=== PATIENT | female | born 1985 | race Caucasian/White ===

== ENCOUNTER 2017-01-05 19:45 | Emergency (ER) | payer BC, MEDICAID ==
[2017-01-05 20:21] VITALS: BP 160/98
[2017-01-05] MEDS ORDERED: Sodium Chloride 0.9% 1,000 ML IV ONE (21:33)
[2017-01-05] MEDS ORDERED: Ondansetron 4 MG/2 ML SDV IVPUSH ONE (21:33)
[2017-01-05] MEDS ORDERED: HYDROmorphone 1 MG/ML Syringe IM ONE (21:33)
--- NOTE | 2017-01-05 22:06 | EDM.PDOC ---
ED HPI GI/ABDOMINAL - General Chief Complaint: Genitourinary Problem Stated Complaint: KIDNEY STONE Time Seen by Provider: 01/05/17 20:19 Source: Reports: Patient History Limitations: Reports: No limitations - History of Present Illness INITIAL COMMENTS - FREE TEXT/NARRATIVE: right flank pain for the past two days, started last night, having constant ache with sharp stabbing pain in rt low pelvis and rt flank. She has taken Tramadol for this and two days ago took percocet for acute pain. She reports pain is similar to previous kidney stones. she is nauseated from the pain. surgeries; appendix, hysterectomy with ovaries intact. 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) (tramadol and percocet) - Related Data Allergies/ADRs: Allergies Allergy/AdvReac Type Severity Reaction Status Date / Time cephalexin [Cephalexin] Allergy Hives Verified 11/14/16 19:04 erythromycin base Allergy migraine Verified 11/14/16 19:04 [Erythromycin Base] Penicillins Allergy Rash Verified 11/14/16 19:04 Sulfa (Sulfonamide Allergy Rash Verified 11/14/16 19:04 Antibiotics) Home Meds: Home Meds Acetaminophen [Tylenol Extra Strength] 1,000 mg PO QID PRN 12/29/15 [History] Ibuprofen 800 mg PO QID PRN 12/29/15 [History] Cetirizine [ZyrTEC] 10 mg PO QAM 02/12/16 [History] Metoclopramide HCl [Reglan] 10 mg PO TID PRN 02/17/16 [History] diphenhydrAMINE HCl [Benadryl] 50 mg PO BEDTIME 04/26/16 [History] Baclofen [Baclofen] 10 mg PO BEDTIME 09/09/16 [History] traMADol [Take Home: traMADol 50 MG, 4 Tab Pack] 50 mg PO Q6HR PRN 09/09/16 [ History] Nortriptyline [Nortriptyline] 100 mg PO DAILY 09/27/16 [History] Past Medical History HEENT History: Reports: Allergic rhinitis Other HEENT History: TMJ Genitourinary History: Reports: Renal calculus, UTI, recurrent 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: Dysfunctional uterine bleeding, Endometriosis, Other OB/BYN History: ovarian cysts-multiple Musculoskeletal History: Reports: Fibromyalgia Neurological History: Reports: Migraines Psychiatric History: Reports: Depression Hematologic History: Reports: Anemia - Infectious Disease History Infectious Disease History: Reports: Chicken pox - Past Surgical History GI Surgical History: Reports: Appendectomy, Cholecystectomy Female Surgical History: Reports: section, Hysterectomy, Lithotripsy /ESWL, Other (see below) Other Female Surgeries/Procedures: kidney stones removed with scope, nephrostomy tube with 2014, fallopian tubes removed. Social & Family History - Family History HEENT: Reports: Hearing impairment Cardiac: Reports: CAD Musculoskeletal: Reports: Arthritis, Fibromyalgia Endocrine/Metabolic: Reports: Diabetes, type I Oncologic: Reports: Uterine Other Oncologic Family History: grandma. - Tobacco Use Smoking Status *Q: Never Smoker Years of Tobacco use: 8 Used Tobacco, but Quit: No Second Hand Smoke Exposure: No - Caffeine Use Caffeine Use: Reports: Coffee - Alcohol Use Days Per Week of Alcohol Use: 0 - Recreational Drug Use Recreational Drug Use: No Drug Use in Last 12 Months: No Recreational Drug Type: Reports: Marijuana/Hashish Recreational Drug Use Frequency: Not Used In Over 1 Year - Living Situation & Occupation Living situation: Reports: , with family (lives with , 4 children in [place], [place].) ED ROS GENERAL - Review of Systems Review Of Systems: See Below Constitutional: Reports: decreased appetite (nausea from pain) HEENT: Reports: No symptoms, Vertigo Cardiovascular: Reports: No symptoms Endocrine: Reports: no symptoms GI/Abdominal: Reports: Abdominal pain : Reports: flank pain (right) Musculoskeletal: Reports: no symptoms Skin: Reports: no symptoms Neurological: Reports: No Symptoms Psychiatric: Reports: No symptoms Hematologic/Lymphatic: Reports: no symptoms Immunologic: Reports: no symptoms ED EXAM, GI/ABD - Physical Exam Exam: See Below Exam Limited By: No limitations General Appearance: alert, WD/WN, no apparent distress Respiratory/Chest: no respiratory distress Cardiovascular: regular rate, rhythm GI/Abdominal: normal bowel sounds, soft, no distention, tenderness (right lower abdomen pelvis) (Female) Exam: Deferred Rectal (Female) Exam: Deferred Psychiatric: normal affect, normal mood Skin Exam: Warm, Dry, Intact, Normal color, No rash Course - Vital Signs Last Recorded V/S: Last Vital Signs Temp 37.2 C 01/05/17 20:19 Pulse 106 H 01/05/17 20:19 Resp 20 01/05/17 20:19 BP 160/98 H 01/05/17 20:19 Pulse Ox 98 01/05/17 20:19 - Orders/Labs/Meds Orders: Active Orders 24 hr Category Date Time Status Kidney Stone Protocol [CT] Stat Exams 01/05/17 21:31 Taken Labs: Laboratory Tests 01/05/17 01/05/17 Range/Units 20:38 20:59 Urine Color [place] Urine Appearance Clear Urine pH 7.0 (4.5-8.0) Ur Specific [place] 1.010 (1.008-1.030) Urine Protein Negative (NEGATIVE) mg/dL Urine Glucose (UA) Normal (NEGATIVE) mg/dL Urine Ketones Negative (NEGATIVE) mg/dL Urine Occult Blood Negative (NEGATIVE) Urine Nitrite Negative (NEGATIVE) Urine Bilirubin Small (NEGATIVE) Urine Urobilinogen 1 (NORMAL) mg/dL Ur Leukocyte Esterase Negative (NEGATIVE) Urine RBC 0-5 (0-5) Urine WBC 0-5 (0-5) Ur Epithelial Cells Moderate Amorphous Sediment Few Urine Bacteria Rare Urine Mucus Few Urine Opiates Screen Positive H (NEGATIVE) Ur Oxycodone Screen Positive H (NEGATIVE) Urine Methadone Screen Negative (NEGATIVE) Ur Propoxyphene Screen Negative (NEGATIVE) Ur Barbiturates Screen Negative (NEGATIVE) Ur Tricyclics Screen Positive H (NEGATIVE) Ur Phencyclidine Scrn Negative (NEGATIVE) Ur Amphetamine Screen Negative (NEGATIVE) U Methamphetamines Scrn Negative (NEGATIVE) Urine MDMA Screen Negative (NEGATIVE) U Benzodiazepines Scrn Positive H (NEGATIVE) U Cocaine Metab Screen Negative (NEGATIVE) U Marijuana (THC) Screen Negative (NEGATIVE) Meds: Medications Discontinued Medications Generic Name Dose Route Start Last Admin Trade Name Freq PRN Reason Stop Dose Admin Hydromorphone HCl 1 mg 01/05/17 21:33 01/05/17 22:06 Dilaudid IM 01/05/17 21:34 1 mg ONETIME ONE Administration Hydromorphone HCl 1 mg 01/05/17 23:54 01/06/17 00:00 Dilaudid IVPUSH 01/05/17 23:55 1 mg ONETIME ONE Administration Sodium Chloride 1,000 mls @ 999 mls/hr 01/05/17 21:33 01/05/17 22:06 Normal Saline IV 01/05/17 22:33 999 mls/hr .BOLUS ONE Administration Ondansetron HCl 4 mg 01/05/17 21:33 01/05/17 22:06 Zofran IVPUSH 01/05/17 21:34 4 mg ONETIME ONE Administration - Re-Assessments/Exams Free Text/Narrative Re-Assessment/Exam: 01/05/17 22:10 given one liter of normal saline, zofran 4m g iv, dilaudid 1 mg im urine and uds completed CT kidney stone protocol pending. 01/05/17 22:13 01/06/17 00:39 CT kidney stone protocol; intra renal stones noted, no other abnormalities are noted. reviewed with patient and given copy of report. advise to follow up with PCP on Saturday for recheck. Departure - Departure Time of Disposition: 00:44 Disposition: Home, Self-Care 01 Condition: good Clinical Impression: Chronic right flank pain Forms: ED Department Discharge Care Plan Goals: right flank pain -may use Percocet one every 4 to 6 hr as needed for acute pain -continue all other medication -push fluids, rest, take medication as prescribed -follow up with Primary Care for recheck on Saturday return to Urgent Care or ER if has increased pain, fever, nausea, vomiting or not improved - Problem List & Annotations (1) Chronic right flank pain SNOMED Code(s): 718648195 Code(s): R10.9 - UNSPECIFIED ABDOMINAL PAIN; G89.29 - OTHER CHRONIC PAIN Status: Chronic Priority: Medium Current Visit: Yes - Problem List Review Problem List Initiated/Reviewed/Updated: Yes - My Orders Last 24 Hours: My Active Orders 01/05/17 21:31 Kidney Stone Protocol [CT] Stat - Assessment/Plan Last 24 Hours: My Active Orders 01/05/17 21:31 Kidney Stone Protocol [CT] Stat Plan: right flank pain -may use Percocet one every 4 to 6 hr as needed for acute pain #10 -continue all other medications -push fluids, rest, take medication as prescribed -follow up with Primary Care for recheck on Saturday return to Urgent Care or ER if has increased pain, fever, nausea, vomiting or not improved
[2017-01-05] MEDS ORDERED: HYDROmorphone 1 MG/ML Syringe IVPUSH ONE (23:54)
== END 2017-01-06 00:59 | disposition home or self-care (01) ==
LOC: JP.ED 19:45
DX: R10.31 Right lower quadrant pain (principal); G89.29 Other chronic pain; F32.9 Major depressive disorder, single episode, unspecified; Z90.49 Acquired absence of other specified parts of digestive tract; Z90.710 Acquired absence of both cervix and uterus; Z98.890 Other specified postprocedural states; Z79.899 Other long term (current) drug therapy; Z88.0 Allergy status to penicillin; Z88.1 Allergy status to other antibiotic agents; Z88.2 Allergy status to sulfonamides
CPT/HCPCS: 74176; 80305; 81001; 96361; 96372; 96374; 96375; 99284; J1170; J2405; J7040

== ENCOUNTER 2017-01-10 13:07 | Emergency (ER) | payer BC, MEDICAID ==
[2017-01-10 13:20] VITALS: BP 161/97
--- NOTE | 2017-01-10 14:26 | CR ---
Abdomen 1V Flat INDICATION: assess constipation FINDINGS: Comparison 11/14/2016. Decreased stool since prior exam. Mild/moderate stool throughout nor mal caliber colon and rectum. No evidence for small bowel obstruction. Surgical clips right upper qu adrant.
--- NOTE | 2017-01-10 15:01 | EDM.PDOC ---
ED HPI GI/ABDOMINAL - General Chief Complaint: Genitourinary Problem Stated Complaint: FLANK/BLADDER PAIN Time Seen by Provider: 01/10/17 13:43 Source: Reports: Patient History Limitations: Reports: No limitations - History of Present Illness INITIAL COMMENTS - FREE TEXT/NARRATIVE: This patient comes in complaining of right flank pain. This is been a frequent problem for her. She's had kidney stones in the past. She was seen recently in the ER and a CT scan was done which showed some small stones in the left kidney but there is nothing in the ureter. It was thought that maybe she had passed a stone at that time. The CT was called otherwise normal. That CT was reviewed and shows a large amount of stool in the colon particularly in the cecum and descending colon. The patient's pain is also in the right side of the abdomen. She denies any fever. There has been just a little bit of vomiting. She denies any constipation. She was seen by me in October for abdominal pain and a plain film at that visit showed a normal some stool within the colon. The patient says that she took some laxatives and took care of that. - Related Data Allergies/ADRs: Allergies Allergy/AdvReac Type Severity Reaction Status Date / Time cephalexin [Cephalexin] Allergy Hives Verified 01/10/17 13:26 erythromycin base Allergy migraine Verified 01/10/17 13:26 [Erythromycin Base] Penicillins Allergy Rash Verified 01/10/17 13:26 Sulfa (Sulfonamide Allergy Rash Verified 01/10/17 13:26 Antibiotics) Home Meds: Home Meds Acetaminophen [Tylenol Extra Strength] 1,000 mg PO QID PRN 12/29/15 [History] Ibuprofen 800 mg PO QID PRN 12/29/15 [History] Cetirizine [ZyrTEC] 10 mg PO QAM 02/12/16 [History] Metoclopramide HCl [Reglan] 10 mg PO TID PRN 02/17/16 [History] diphenhydrAMINE HCl [Benadryl] 50 mg PO BEDTIME 04/26/16 [History] Baclofen [Baclofen] 10 mg PO BEDTIME 09/09/16 [History] traMADol [Take Home: traMADol 50 MG, 4 Tab Pack] 50 mg PO Q6HR PRN 09/09/16 [ History] Nortriptyline [Nortriptyline] 100 mg PO DAILY 09/27/16 [History] Past Medical History HEENT History: Reports: Allergic rhinitis Other HEENT History: TMJ Genitourinary History: Reports: Renal calculus, UTI, recurrent 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: Dysfunctional uterine bleeding, Endometriosis, Other OB/BYN History: ovarian cysts-multiple Musculoskeletal History: Reports: Fibromyalgia Neurological History: Reports: Migraines Psychiatric History: Reports: Depression Hematologic History: Reports: Anemia - Infectious Disease History Infectious Disease History: Reports: Chicken pox - Past Surgical History GI Surgical History: Reports: Appendectomy, Cholecystectomy Female Surgical History: Reports: section, Hysterectomy, Lithotripsy /ESWL, Other (see below) Other Female Surgeries/Procedures: kidney stones removed with scope, nephrostomy tube with 2014, fallopian tubes removed. Social & Family History - Family History HEENT: Reports: Hearing impairment Cardiac: Reports: CAD Musculoskeletal: Reports: Arthritis, Fibromyalgia Endocrine/Metabolic: Reports: Diabetes, type I Oncologic: Reports: Uterine Other Oncologic Family History: grandma. - Tobacco Use Smoking Status *Q: Never Smoker Years of Tobacco use: 8 Used Tobacco, but Quit: No Second Hand Smoke Exposure: No - Caffeine Use Caffeine Use: Reports: Coffee - Alcohol Use Days Per Week of Alcohol Use: 0 - Recreational Drug Use Recreational Drug Use: No Drug Use in Last 12 Months: No Recreational Drug Type: Reports: Marijuana/Hashish Recreational Drug Use Frequency: Not Used In Over 1 Year - Living Situation & Occupation Living situation: Reports: , with family (lives with , 4 children in [place], [place].) ED ROS GENERAL - Review of Systems Review Of Systems: ROS reveals no pertinent complaints other than HPI. ED EXAM, GI/ABD - Physical Exam Exam: See Below Exam Limited By: No limitations General Appearance: alert, WD/WN, mild distress Eyes: bilateral: normal appearance Respiratory/Chest: lungs clear (Either) Cardiovascular: regular rate, rhythm, no murmur GI/Abdominal: normal bowel sounds, soft, non tender Back Exam: CVA tenderness (R) Extremities: normal inspection Neurological: alert, oriented (Soon as this this is a) Skin Exam: Warm, Dry Course - Vital Signs Last Recorded V/S: Last Vital Signs Temp 36.4 C 01/10/17 13:32 Pulse 89 01/10/17 13:32 Resp 16 01/10/17 13:32 BP 161/97 H 01/10/17 13:32 Pulse Ox 99 01/10/17 13:32 - Orders/Labs/Meds Labs: Laboratory Tests 01/10/17 Range/Units 13:23 Urine Color Yellow Urine Appearance Clear Urine pH 6.0 (4.5-8.0) Ur Specific [place] 1.015 (1.008-1.030) Urine Protein Negative (NEGATIVE) mg/dL Urine Glucose (UA) Normal (NEGATIVE) mg/dL Urine Ketones Negative (NEGATIVE) mg/dL Urine Occult Blood Negative (NEGATIVE) Urine Nitrite Negative (NEGATIVE) Urine Bilirubin Negative (NEGATIVE) Urine Urobilinogen Normal (NORMAL) mg/dL Ur Leukocyte Esterase Negative (NEGATIVE) Urine RBC Not seen (0-5) Urine WBC Not seen (0-5) Ur Epithelial Cells Rare Amorphous Sediment Rare Urine Bacteria Rare Urine Mucus Not seen Urine Other See note - Re-Assessments/Exams Free Text/Narrative Re-Assessment/Exam: 01/11/17 17:24 Labs were reviewed. A repeat flat abdominal film does show a small to moderate amount of stool within the colon. Much less than on previous exams. I note that this lady has had a total of [address] scans at this facility and she's also had another 3 abdominal [address]s at [facility]. She's aware of the radiation risk. We discussed the use of laxatives and fiber. The patient's urine is normal today and was actually normal on her last ER visit. Patient said that she thought that there was blood in it. She also thought that the urine today was very dark. Specific gravity of the urine today was 1.015 I think it would be worthwhile for her to get her bowels completely cleared out and see if that helps the problem prior to doing any more diagnostic workup for this chronic recurring problem Departure - Departure Time of Disposition: 14:54 Disposition: Home, Self-Care 01 Condition: fair Clinical Impression: Right flank pain, chronic Instructions: Constipation, Adult Referrals: PCP,None [Primary Care Provider] - Forms: ED Department Discharge Additional Instructions: try drinking one full bottle of magnesium citrate along with several glasses of water. This should clear out your bowels within about 12-24 hours. Afterwards eat a high fiber diet. A suggestion would be a large bowl of bran cereal twice daily. You should look for a cereal with 8-10 g of insoluble fiber per serving. Try using either lactose free milk or use Lactaid tablets with regular milk. If your bowels or cleared out but this does not seem to help the pain been at least you'll be able to rule out constipation as a cause of your pain. If the pain continues then an ultrasound of the right kidney might be a good test. Try to avoid having any more CT scans since the radiation dose is high.
== END 2017-01-10 15:07 | disposition home or self-care (01) ==
LOC: JP.ED 13:07
DX: R10.9 Unspecified abdominal pain (principal); G89.29 Other chronic pain; F32.9 Major depressive disorder, single episode, unspecified; Z90.49 Acquired absence of other specified parts of digestive tract; Z90.710 Acquired absence of both cervix and uterus; Z98.890 Other specified postprocedural states; Z87.442 Personal history of urinary calculi; Z79.899 Other long term (current) drug therapy; Z88.0 Allergy status to penicillin; Z88.1 Allergy status to other antibiotic agents; Z88.2 Allergy status to sulfonamides
CPT/HCPCS: 74000; 74000-26; 81001; 99284

== ENCOUNTER 2017-02-12 17:28 | Emergency (ER) | payer BC, MEDICAID ==
[2017-02-12 18:44] VITALS: BP 150/95
[2017-02-12] MEDS ORDERED: Ketorolac 60 MG/2 ML SDV IM ONE (19:50)
[2017-02-12] MEDS ORDERED: Ondansetron 4 MG Tab.DIS PO ONE (19:50)
--- NOTE | 2017-02-12 20:07 | EDM.PDOC ---
ED HPI GENERAL MEDICAL PROBLEM - General Chief Complaint: General Stated Complaint: MIGRAINE/KIDNEY AND BLADDER PAIN Time Seen by Provider: 02/12/17 19:25 Source of Information: Reports: Patient History Limitations: Reports: No Limitations - History of Present Illness INITIAL COMMENTS - FREE TEXT/NARRATIVE: 31-year-old female with chronic pain syndromes in with a migraine for the last 3 days and right-sided flank pain which is chronic. She denies taking any pain medications at this time but has received 120 Percocet in the last 2 weeks. No vomiting but does have nausea and some mild photophobia. Onset: Unknown/Unsure Severity: Moderate Associated Symptoms: Reports: Headaches, Malaise. Denies: Cough, Fever/Chills Headache Pain Score (Numeric/FACES): 8 Flank Pain Score (Numeric/FACES): 6 - Related Data Allergies Allergy/AdvReac Type Severity Reaction Status Date / Time cephalexin [Cephalexin] Allergy Hives Verified 01/10/17 13:26 erythromycin base Allergy migraine Verified 01/10/17 13:26 [Erythromycin Base] Penicillins Allergy Rash Verified 01/10/17 13:26 Sulfa (Sulfonamide Allergy Rash Verified 01/10/17 13:26 Antibiotics) Home Meds: Home Meds Acetaminophen [Tylenol Extra Strength] 1,000 mg PO QID PRN 12/29/15 [History] Ibuprofen 800 mg PO QID PRN 12/29/15 [History] Cetirizine [ZyrTEC] 10 mg PO QAM 02/12/16 [History] Metoclopramide HCl [Reglan] 10 mg PO TID PRN 02/17/16 [History] diphenhydrAMINE HCl [Benadryl] 50 mg PO BEDTIME 04/26/16 [History] Baclofen [Baclofen] 10 mg PO BEDTIME 09/09/16 [History] traMADol [Take Home: traMADol 50 MG, 4 Tab Pack] 50 mg PO Q6HR PRN 09/09/16 [ History] Nortriptyline [Nortriptyline] 100 mg PO DAILY 09/27/16 [History] Atenolol 25 mg PO DAILY 02/12/17 [History] Past Medical History HEENT History: Reports: Allergic Rhinitis Other HEENT History: TMJ Gastrointestinal History: Reports: None Genitourinary History: Reports: Renal Calculus, UTI, 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, Endometriosis, Other OB/BYN History: ovarian cysts-multiple Musculoskeletal History: Reports: Fibromyalgia Neurological History: Reports: Migraines Psychiatric History: Reports: Depression Hematologic History: Reports: Anemia - Infectious Disease History Infectious Disease History: Reports: Chicken Pox - Past Surgical History Head Surgeries/Procedures: Reports: None HEENT Surgical History: Reports: None GI Surgical History: Reports: Appendectomy, Cholecystectomy Female Surgical History: Reports: Section, Hysterectomy, Lithotripsy /ESWL, Other (See Below) Neurological Surgical History: Reports: None Musculoskeletal Surgical History: Reports: None Dermatological Surgical History: Reports: None Social & Family History - Family History HEENT: Reports: Hearing Impairment Cardiac: Reports: CAD Musculoskeletal: Reports: Arthritis, Fibromyalgia Endocrine/Metabolic: Reports: Diabetes, Type I Oncologic: Reports: Uterine Other Oncologic Family History: grandma. - Tobacco Use Smoking Status *Q: Former Smoker Years of Tobacco use: 8 Packs/Tins Daily: 0.5 Used Tobacco, but Quit: Yes Month Tobacco Last Used: July Second Hand Smoke Exposure: No - Caffeine Use Caffeine Use: Reports: Coffee, Energy Drinks, Soda, Tea - Alcohol Use Days Per Week of Alcohol Use: 0 - Recreational Drug Use Recreational Drug Use: No Drug Use in Last 12 Months: No Recreational Drug Type: Reports: Marijuana/Hashish Recreational Drug Use Frequency: Not Used In Over 1 Year - Living Situation & Occupation Living situation: Reports: , with Family ED ROS GENERAL - Review of Systems Review Of Systems: See Below Constitutional: Reports: Malaise. Denies: Fever, Chills HEENT: Reports: Other (Some photophobia) Respiratory: Denies: Shortness of Breath : Reports: Flank Pain. Denies: Dysuria, Frequency Skin: Reports: No Symptoms Neurological: Reports: Headache ED EXAM, GENERAL - Physical Exam Exam: See Below Exam Limited By: No Limitations General Appearance: Alert, No Apparent Distress (Not distressed but does act uncomfortable) Respiratory/Chest: No Respiratory Distress, Lungs Clear Cardiovascular: Regular Rate, Rhythm GI/Abdominal: Soft, Non-Tender Neurological: Alert, Oriented Psychiatric: Flat Affect Skin Exam: Warm, Dry Course - Vital Signs Last Recorded V/S: Last Vital Signs Temp 98.2 F 02/12/17 19:28 Pulse 96 02/12/17 19:28 Resp 16 02/12/17 19:28 BP 150/95 H 02/12/17 19:28 Pulse Ox 97 02/12/17 19:28 - Orders/Labs/Meds Orders: Active Orders 24 hr Category Date Time Status CULTURE URINE [RM] Stat Lab 02/12/17 20:41 Received Labs: Laboratory Tests 02/12/17 Range/Units 20:07 Urine Color Yellow Urine Appearance Cloudy Urine pH 7.0 (4.5-8.0) Ur Specific [place] 1.010 (1.008-1.030) Urine Protein Negative (NEGATIVE) mg/dL Urine Glucose (UA) Normal (NEGATIVE) mg/dL Urine Ketones Negative (NEGATIVE) mg/dL Urine Occult Blood Negative (NEGATIVE) Urine Nitrite Negative (NEGATIVE) Urine Bilirubin Negative (NEGATIVE) Urine Urobilinogen Normal (NORMAL) mg/dL Ur Leukocyte Esterase Negative (NEGATIVE) Urine RBC 0-5 (0-5) Urine WBC 5-10 H (0-5) Ur Epithelial Cells Moderate Amorphous Sediment Few Urine Bacteria Moderate Urine Mucus Few Meds: Medications Discontinued Medications Generic Name Dose Route Start Last Admin Trade Name Freq PRN Reason Stop Dose Admin Ketorolac Tromethamine 60 mg 02/12/17 19:50 02/12/17 20:12 Toradol IM 02/12/17 19:51 60 mg ONETIME ONE Administration Methylprednisolone Sodium Succinate 125 mg 02/12/17 20:44 02/12/17 20:52 Solu-Medrol IM 02/12/17 20:45 125 mg ONETIME ONE Administration Ondansetron HCl 4 mg 02/12/17 19:50 02/12/17 20:13 Zofran Odt PO 02/12/17 19:51 4 mg ONETIME ONE Administration - Re-Assessments/Exams Free Text/Narrative Re-Assessment/Exam: 02/12/17 20:06 Patient was given 60 mg of Toradol IM and 4 mg of sublingual Zofran. A mini cath UA was obtained. 02/12/17 20:46 Cath UA was not obtained because the patient supplied a sample was taken the lab as a clean catch. There a few white cells and bacteria so this will be cultured but it likely will be mixed natty as in the past. She should be placed on Cipro 250 twice a day for the next 3 days. She said the Toradol and Zofran "didn't do anything for her". She was given 125 mg of Solu-Medrol IM and prepared for discharge. 02/12/17 21:08 To discharge she asked for a prescription of something that could "get her through so she could get to work". I then told her to take the oxycodone as prescribed and she said they weren't working, despite not admitting she had any earlier. I told her she is already on the strongest narcotic, we gave her the strongest anti-inflammatory and also gave her shot of steroid, she'll just have to continue with her current medications. Departure - Departure Time of Disposition: 21:07 Disposition: Home, Self-Care 01 Condition: good Clinical Impression: Bacteria in urine, Right flank pain, chronic Migraine Qualifiers: Migraine type: without aura Status migrainosus presence: without status migrainosus Intractability: not intractable Qualified Code(s): G43.009 - Migraine without aura, not intractable, without status migrainosus - Discharge Information Instructions: Recurrent Migraine Headache, [id number] Referrals: PCP,None [Primary Care Provider] - Forms: ED Department Discharge Care Plan Goals: Take Cipro twice daily for the next 3 days and continue your regular medications. Recheck with your primary provider in 48-72 hours if not improving satisfactorily, or return to ER if worsening. - My Orders Last 24 Hours: My Active Orders 02/12/17 20:41 CULTURE URINE [RM] Stat - Assessment/Plan Last 24 Hours: My Active Orders 02/12/17 20:41 CULTURE URINE [RM] Stat
[2017-02-12] MEDS ORDERED: methylPREDNISolone Sodium Succinate 125 MG/2 ML SDV IM ONE (20:44)
== END 2017-02-12 21:08 | disposition home or self-care (01) ==
LOC: JP.ED 17:28
DX: G43.009 Migraine without aura, not intractable, without status migrainosus (principal); R82.71 Bacteriuria; R10.9 Unspecified abdominal pain; F32.9 Major depressive disorder, single episode, unspecified; Z88.1 Allergy status to other antibiotic agents; Z88.2 Allergy status to sulfonamides; Z88.0 Allergy status to penicillin; Z79.899 Other long term (current) drug therapy; Z90.49 Acquired absence of other specified parts of digestive tract; Z90.710 Acquired absence of both cervix and uterus; Z87.891 Personal history of nicotine dependence; Z87.440 Personal history of urinary (tract) infections
CPT/HCPCS: 81001; 87086; 96372; 96374; 99283; 99284; A9270; J1885; J2930

== ENCOUNTER 2017-04-24 14:35 | Emergency (ER) | payer BC, MEDICAID ==
[2017-04-24] MEDS ORDERED: Sodium Chloride 0.9% 1,000 ML IV SCH (15:00)
[2017-04-24] MEDS ORDERED: HYDROmorphone 0.5 MG/0.5 ML Syringe IVPUSH ONE ×2 (16:12→18:24)
[2017-04-24] MEDS ORDERED: Ketorolac 30 MG/ML SDV IVPUSH ONE (17:19)
--- NOTE | 2017-04-24 17:20 | EDM.PDOC ---
[id number] Chief Complaint: Genitourinary Problem Stated Complaint: RLQ PAIN Time Seen by Provider: 04/24/17 14:50 - Related Data Allergies Allergy/AdvReac Type Severity Reaction Status Date / Time cephalexin [Cephalexin] Allergy Hives Verified 04/24/17 15:11 erythromycin base Allergy migraine Verified 04/24/17 15:11 [Erythromycin Base] Penicillins Allergy Rash Verified 04/24/17 15:11 Sulfa (Sulfonamide Allergy Rash Verified 04/24/17 15:11 Antibiotics) Home Meds: Home Meds Acetaminophen [Tylenol Extra Strength] 1,000 mg PO QID PRN 12/29/15 [History] Ibuprofen 800 mg PO QID PRN 12/29/15 [History] Cetirizine [ZyrTEC] 10 mg PO QAM 02/12/16 [History] Metoclopramide HCl [Reglan] 10 mg PO TID PRN 02/17/16 [History] diphenhydrAMINE HCl [Benadryl] 50 mg PO BEDTIME PRN 04/26/16 [History] Baclofen [Baclofen] 10 mg PO BEDTIME 09/09/16 [History] traMADol [Take Home: traMADol 50 MG, 4 Tab Pack] 50 mg PO Q6HR PRN 09/09/16 [ History] Nortriptyline [Nortriptyline] 100 mg PO DAILY 09/27/16 [History] Atenolol 1 mg PO TID 02/12/17 [History] ED EXAM, GI/ABD - Physical Exam Exam: See Below Course - Vital Signs Last Recorded V/S: Last Vital Signs Temp 36.5 C 04/24/17 18:57 Pulse 71 04/24/17 18:57 Resp 16 04/24/17 18:57 BP 131/71 04/24/17 18:57 Pulse Ox 97 04/24/17 18:57 - Orders/Labs/Meds Labs: Laboratory Tests 04/24/17 04/24/17 04/24/17 Range/Units 14:45 14:45 14:49 WBC 8.6 (4.5-11.0) K/uL RBC 4.18 (3.30-5.50) M/uL Hgb 12.5 (12.0-15.0) g/dL Hct 36.4 (36.0-48.0) % MCV 87 (80-98) fL MCH 30 (27-31) pg MCHC 34 (32-36) % Plt Count 282 (150-400) K/uL Neut % (Auto) 39 (36-66) % Lymph % (Auto) 44 (24-44) % [place] % (Auto) 8 H (2-6) % Eos % (Auto) 8 H (2-4) % Baso % (Auto) 2 H (0-1) % Sodium 139 L (140-148) mmol/L Potassium 3.9 (3.6-5.2) mmol/L Chloride 102 (100-108) mmol/L Carbon Dioxide 28 (21-32) mmol/L Anion Gap 12.9 (5.0-14.0) mmol/L BUN 11 (7-18) mg/dL Creatinine 0.9 D (0.6-1.0) mg/dL Est Cr Clr Drug Dosing 83.23 mL/min Estimated GFR (MDRD) > 60 (>60) Glucose 93 (74-106) mg/dL Calcium 8.5 (8.5-10.1) mg/dL Total Bilirubin 0.2 (0.2-1.0) mg/dL AST 12 L (15-37) U/L ALT 16 (12-78) U/L Alkaline Phosphatase 86 (46-116) U/L C-Reactive Protein (0.0-0.3) mg/dL Total Protein 7.7 (6.4-8.2) g/dL Albumin 4.2 (3.4-5.0) g/dL Globulin 3.5 (2.3-3.5) g/dL Albumin/Globulin Ratio 1.2 (1.2-2.2) Urine Color Yellow Urine Appearance Slightly cloudy Urine pH 6.0 (4.5-8.0) Ur Specific [place] 1.020 (1.008-1.030) Urine Protein Negative (NEGATIVE) mg/dL Urine Glucose (UA) Normal (NEGATIVE) mg/dL Urine Ketones Negative (NEGATIVE) mg/dL Urine Occult Blood Negative (NEGATIVE) Urine Nitrite Negative (NEGATIVE) Urine Bilirubin Negative (NEGATIVE) Urine Urobilinogen Normal (NORMAL) mg/dL Ur Leukocyte Esterase Negative (NEGATIVE) Urine RBC 0-5 (0-5) Urine WBC 0-5 (0-5) Ur Epithelial Cells Moderate Amorphous Sediment Not seen Urine Bacteria Many Urine Mucus Not seen Urine Other 04/24/17 Range/Units 16:40 WBC (4.5-11.0) K/uL RBC (3.30-5.50) M/uL Hgb (12.0-15.0) g/dL Hct (36.0-48.0) % MCV (80-98) fL MCH (27-31) pg MCHC (32-36) % Plt Count (150-400) K/uL Neut % (Auto) (36-66) % Lymph % (Auto) (24-44) % [place] % (Auto) (2-6) % Eos % (Auto) (2-4) % Baso % (Auto) (0-1) % Sodium (140-148) mmol/L Potassium (3.6-5.2) mmol/L Chloride (100-108) mmol/L Carbon Dioxide (21-32) mmol/L Anion Gap (5.0-14.0) mmol/L BUN (7-18) mg/dL Creatinine (0.6-1.0) mg/dL Est Cr Clr Drug Dosing mL/min Estimated GFR (MDRD) (>60) Glucose (74-106) mg/dL Calcium (8.5-10.1) mg/dL Total Bilirubin (0.2-1.0) mg/dL AST (15-37) U/L ALT (12-78) U/L Alkaline Phosphatase (46-116) U/L C-Reactive Protein 0.18 (0.0-0.3) mg/dL Total Protein (6.4-8.2) g/dL Albumin (3.4-5.0) g/dL Globulin (2.3-3.5) g/dL Albumin/Globulin Ratio (1.2-2.2) Urine Color Urine Appearance Urine pH (4.5-8.0) Ur Specific [place] (1.008-1.030) Urine Protein (NEGATIVE) mg/dL Urine Glucose (UA) (NEGATIVE) mg/dL Urine Ketones (NEGATIVE) mg/dL Urine Occult Blood (NEGATIVE) Urine Nitrite (NEGATIVE) Urine Bilirubin (NEGATIVE) Urine Urobilinogen (NORMAL) mg/dL Ur Leukocyte Esterase (NEGATIVE) Urine RBC (0-5) Urine WBC (0-5) Ur Epithelial Cells Amorphous Sediment Urine Bacteria Urine Mucus Urine Other Meds: Medications Discontinued Medications Generic Name Dose Route Start Last Admin Trade Name Hangq PRN Reason Stop Dose Admin Hydromorphone HCl 0.5 mg 04/24/17 16:12 04/24/17 16:54 Dilaudid IVPUSH 04/24/17 16:13 0.5 mg ONETIME ONE Administration Hydromorphone HCl 0.5 mg 04/24/17 18:24 04/24/17 18:31 Dilaudid IVPUSH 04/24/17 18:25 0.5 mg ONETIME ONE Administration Sodium Chloride 1,000 mls @ 999 mls/hr 04/24/17 15:00 04/24/17 15:00 Normal Saline IV 999 mls/hr ASDIRECTED CRISTINA Administration Sodium Chloride 80 mls @ 3 mls/sec 04/24/17 17:30 04/24/17 17:43 Normal Saline IV 3 mls/sec ASDIRECTED CRISTINA Administration Iopamidol 100 ml 04/24/17 17:30 04/24/17 17:43 Isovue-300 (61%) IV 100 ml . DIRECTED CRISTINA Administration Ketorolac Tromethamine 30 mg 04/24/17 17:19 04/24/17 17:28 Toradol IVPUSH 04/24/17 17:20 30 mg ONETIME ONE Administration Sodium Chloride 10 ml 04/24/17 17:29 04/24/17 17:43 Saline Flush FLUSH 10 ml ASDIRECTED PRN Administration Keep Vein Open - Radiology Interpretation Free Text/Narrative:: CT is negative. 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 <La Gipson - Last Filed: 04/26/17 18:18> ED HPI GENERAL MEDICAL PROBLEM - General Source of Information: Reports: Patient History Limitations: Reports: No Limitations - History of Present Illness INITIAL COMMENTS - FREE TEXT/NARRATIVE: pt has severe rt mid abdomanal pain. Pt states this started very suddenly. She feels this is like the pain she larose had with an ovarian cyst. 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: Dysfunctional Uterine Bleeding, Endometriosis, Other OB/BYN History: ovarian cysts-multiple Musculoskeletal History: Reports: Fibromyalgia Neurological History: Reports: Migraines Psychiatric History: Reports: Anxiety, Depression Hematologic History: Reports: Anemia - Infectious Disease History Infectious Disease History: Reports: Chicken Pox - Past Surgical History HEENT Surgical History: Reports: None GI Surgical History: Reports: Appendectomy, Cholecystectomy Female Surgical History: Reports: Section, Hysterectomy, Lithotripsy /ESWL Dermatological Surgical History: Reports: None Social & Family History - Family History HEENT: Reports: Hearing Impairment Cardiac: Reports: CAD Musculoskeletal: Reports: Arthritis, Fibromyalgia Endocrine/Metabolic: Reports: Diabetes, Type I Oncologic: Reports: Uterine Other Oncologic Family History: grandma. - Tobacco Use Smoking Status *Q: Never Smoker Years of Tobacco use: 8 Packs/Tins Daily: 0.5 Used Tobacco, but Quit: Yes Month Tobacco Last Used: July Second Hand Smoke Exposure: No - Caffeine Use Caffeine Use: Reports: Coffee, Energy Drinks, Soda, Tea - Alcohol Use Days Per Week of Alcohol Use: 0 - Recreational Drug Use Recreational Drug Use: No Drug Use in Last 12 Months: No Recreational Drug Type: Reports: Marijuana/Hashish Recreational Drug Use Frequency: Not Used In Over 1 Year - Living Situation & Occupation Living situation: Reports: , with Family ED ROS GENERAL - Review of Systems Review Of Systems: See Below Constitutional: Reports: No Symptoms HEENT: Reports: No Symptoms Respiratory: Reports: No Symptoms Cardiovascular: Reports: No Symptoms Endocrine: Reports: No Symptoms GI/Abdominal: Reports: Abdominal Pain, Other ( pain in the rt mid abdomn. ) : Reports: No Symptoms ED EXAM, GI/ABD - Physical Exam Text/Narrative:: pt arrived with rt lower and mid abdomanal pain. Exam Limited By: No Limitations General Appearance: Alert, Anxious, Moderate Distress Ears: Normal TMs Nose: Normal Inspection Throat/Mouth: Normal Inspection Head: Atraumatic Neck: Normal Inspection Respiratory/Chest: No Respiratory Distress Cardiovascular: Regular Rate, Rhythm GI/Abdominal Exam: Tender, Other (pt is tender in the rt mid abdoman. She did not have true guarding. ) (Female) Exam: Deferred Rectal (Female) Exam: Deferred Back Exam: Normal Inspection Extremities: Normal Inspection Neurological: Alert, Oriented, Normal Cognition Psychiatric: Normal Affect
[2017-04-24] MEDS ORDERED: Sodium Chloride 0.9% 10 ML Syringe FLUSH PRN (17:29)
[2017-04-24] MEDS ORDERED: Iopamidol 612 MG/ML 100 ML Bottle IV SCH (17:30)
[2017-04-24] MEDS ORDERED: Sodium Chloride 0.9% 80 ML IV SCH (17:30)
[2017-04-24 18:58] VITALS: BP 131/71
--- NOTE | 2017-04-25 09:15 | US ---
Pelvic ultrasound Transabdominal images were obtained. The uterus is surgically absent. The ovaries are visualized bilaterally. There are no enlarged cyst or adnexal masses. The ovaries demonstrate normal blood flow. There is no free fluid in the pelvis. Impression: 1. Prior hysterectomy. 2. No acute findings.
== END 2017-04-24 19:42 | disposition home or self-care (01) ==
LOC: JP.ED 14:35
DX: R10.30 Lower abdominal pain, unspecified (principal); F41.9 Anxiety disorder, unspecified; F32.9 Major depressive disorder, single episode, unspecified; Z87.440 Personal history of urinary (tract) infections; Z87.442 Personal history of urinary calculi; Z90.49 Acquired absence of other specified parts of digestive tract; Z90.710 Acquired absence of both cervix and uterus; Z98.890 Other specified postprocedural states; Z88.0 Allergy status to penicillin; Z88.1 Allergy status to other antibiotic agents; Z88.2 Allergy status to sulfonamides; Z79.899 Other long term (current) drug therapy
CPT/HCPCS: 36415; 74177; 76857; 80053; 81001; 85025; 86140; 96361; 96374; 96375; 96376; 99284; J1170; J1885; J7030; J7040; J7050; Q9967

== ENCOUNTER 2017-05-14 19:03 | Emergency (ER) | payer BC, MEDICAID ==
[2017-05-14 20:10] VITALS: BP 195/100
[2017-05-14] MEDS ORDERED: Ondansetron 4 MG Tab.DIS PO ONE (20:14)
[2017-05-14] MEDS ORDERED: HYDROmorphone 1 MG/ML Syringe IM ONE (20:16)
--- NOTE | 2017-05-14 21:34 | EDM.PDOC ---
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 She's had this problem off and on for perhaps years. She has an appointment with an OB mammography supervisor [place]. Presenting here for pain control. She's had no fevers chills sweats cough cold symptoms she's had no nausea or vomiting constipation diarrhea or dysuria. Pain is localized to the right suprapubic area and is sharp and severe. She's had a recent ultrasound. She does have tramadol she uses for fibromyalgia but that has not controlled her pain is use [id number] NSAIDs without relief. She said had an appendectomy and a hysterectomy] Review of systems: As per history of present illness and below otherwise all systems reviewed and negative. Past medical history: As per history of present illness and as reviewed below otherwise noncontributory. Surgical history: As per history of present illness and as reviewed below otherwise noncontributory. Social history: No reported history of drug or alcohol abuse. Family history: As per history of present illness and as reviewed below otherwise noncontributory. Physical exam: HEENT: Atraumatic, normocephalic, pupils reactive, negative for conjunctival pallor or scleral icterus, mucous membranes moist, throat clear, neck supple, nontender, trachea midline. Lungs: Clear to auscultation, breath sounds equal bilaterally, chest nontender. Heart: S1S2, regular, negative for clicks, rubs, or JVD. Abdomen: Soft, she has tenderness to palpation just above the rim of the right pubic ramus. Negative for masses or hepatosplenomegaly. Negative for costovertebral tenderness. Pelvis: Stable nontender. Genitourinary: Deferred. Rectal: Deferred. Extremities: Atraumatic, negative for cords or calf pain. Neurovascular unremarkable. Neuro: Awake, alert, oriented. Cranial nerves II through XII unremarkable. Cerebellum unremarkable. Motor and sensory unremarkable throughout. Exam nonfocal. Diagnostics: [] Therapeutics: [She received Dilaudid 1 mg IM with fairly good relief.] Impression: [Right ovarian cyst pain] Plan: [I'm providing her with [place] 5/325 one by mouth every 3-4 hours when necessary #12. She will follow-up with MASKING MACHINE OPERATOR next Saturday. If she needs more pain medication as I'm encouraging her to get them from her primary] Definitive disposition and diagnosis as appropriate pending reevaluation and review of above. Right Lower Abdomen Pain Score (Numeric/FACES): 6 - Related Data Allergies Allergy/AdvReac Type Severity Reaction Status Date / Time cephalexin [Cephalexin] Allergy Hives Verified 04/24/17 15:11 erythromycin base Allergy migraine Verified 04/24/17 15:11 [Erythromycin Base] Penicillins Allergy Rash Verified 04/24/17 15:11 Sulfa (Sulfonamide Allergy Rash Verified 04/24/17 15:11 Antibiotics) Home Meds: Home Meds Acetaminophen [Tylenol Extra Strength] 1,000 mg PO QID PRN 12/29/15 [History] Ibuprofen 800 mg PO QID PRN 12/29/15 [History] Cetirizine [ZyrTEC] 10 mg PO QAM 02/12/16 [History] Metoclopramide HCl [Reglan] 10 mg PO TID PRN 02/17/16 [History] diphenhydrAMINE HCl [Benadryl] 50 mg PO BEDTIME PRN 04/26/16 [History] Baclofen [Baclofen] 10 mg PO BEDTIME 09/09/16 [History] traMADol [Take Home: traMADol 50 MG, 4 Tab Pack] 50 mg PO Q6HR PRN 09/09/16 [ History] Nortriptyline [Nortriptyline] 100 mg PO DAILY 09/27/16 [History] Atenolol 1 mg PO TID 02/12/17 [History] Past Medical History HEENT History: Reports: Allergic Rhinitis Other HEENT History: TMJ Gastrointestinal History: Reports: None Genitourinary History: Reports: Renal Calculus, UTI, Recurrent, Other (See Below ) Other Genitourinary History: ovarian cysts 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: Dysfunctional Uterine Bleeding, Endometriosis, Other OB/BYN History: ovarian cysts-multiple Musculoskeletal History: Reports: Fibromyalgia Neurological History: Reports: Migraines Psychiatric History: Reports: Anxiety, Depression Hematologic History: Reports: Anemia - Infectious Disease History Infectious Disease History: Reports: Chicken Pox - Past Surgical History Head Surgeries/Procedures: Reports: None HEENT Surgical History: Reports: None GI Surgical History: Reports: Appendectomy, Cholecystectomy Female Surgical History: Reports: Section, Hysterectomy, Lithotripsy /ESWL Dermatological Surgical History: Reports: None Social & Family History - Family History HEENT: Reports: Hearing Impairment Cardiac: Reports: CAD Musculoskeletal: Reports: Arthritis, Fibromyalgia Endocrine/Metabolic: Reports: Diabetes, Type I Oncologic: Reports: Uterine Other Oncologic Family History: grandma. - Tobacco Use Smoking Status *Q: Never Smoker Years of Tobacco use: 8 Packs/Tins Daily: 0.5 Used Tobacco, but Quit: Yes Month Tobacco Last Used: July Second Hand Smoke Exposure: No - Caffeine Use Caffeine Use: Reports: Coffee, Soda - Alcohol Use Days Per Week of Alcohol Use: 0 - Recreational Drug Use Recreational Drug Use: No Drug Use in Last 12 Months: No Recreational Drug Type: Reports: Marijuana/Hashish Recreational Drug Use Frequency: Not Used In Over 1 Year - Living Situation & Occupation Living situation: Reports: , with Family ED ROS GENERAL - Review of Systems Review Of Systems: ROS reveals no pertinent complaints other than HPI. ED EXAM, GENERAL - Physical Exam Exam: See Below Course - Vital Signs Last Recorded V/S: Last Vital Signs Temp 36.3 C 05/14/17 19:50 Pulse 86 05/14/17 19:50 Resp 15 05/14/17 19:50 BP 195/100 H 05/14/17 19:50 Pulse Ox 100 05/14/17 19:50 - Orders/Labs/Meds Meds: Medications Discontinued Medications Generic Name Dose Route Start Last Admin Trade Name [place] PRN Reason Stop Dose Admin Hydromorphone HCl 1 mg 05/14/17 20:16 05/14/17 21:00 Dilaudid IM 05/14/17 20:17 1 mg ONETIME ONE Administration Ondansetron HCl 4 mg 05/14/17 20:14 05/14/17 21:01 Zofran Odt PO 05/14/17 20:15 4 mg ONETIME ONE Administration Departure - Departure Time of Disposition: 21:32 Disposition: Home, Self-Care 01 Condition: Good Clinical Impression: Adnexal pain - Discharge Information Forms: ED Department Discharge Additional Instructions: Follow up with the OB mammography supervisor on Saturday as planned. If you need more pain medication other than what I have provided try to get that from your primary care doctor. If the pain becomes very severe and unrelenting you'll need to repeat present to the emergency room.
== END 2017-05-14 21:48 | disposition home or self-care (01) ==
LOC: JP.ED 19:03
DX: R10.2 Pelvic and perineal pain (principal); N83.201 Unspecified ovarian cyst, right side; F41.9 Anxiety disorder, unspecified; F32.9 Major depressive disorder, single episode, unspecified; Z90.710 Acquired absence of both cervix and uterus; Z90.49 Acquired absence of other specified parts of digestive tract; Z98.890 Other specified postprocedural states; Z88.0 Allergy status to penicillin; Z88.1 Allergy status to other antibiotic agents; Z88.2 Allergy status to sulfonamides; Z79.899 Other long term (current) drug therapy; Z87.440 Personal history of urinary (tract) infections; Z87.442 Personal history of urinary calculi
CPT/HCPCS: 96372; 99283; A9270; J1170; 99284

== ENCOUNTER 2017-05-22 20:40 | Emergency (ER) | payer BC, MEDICAID ==
[2017-05-22 21:18] VITALS: BP 153/83
--- NOTE | 2017-05-22 22:01 | EDM.PDOC ---
ED HPI GENERAL MEDICAL PROBLEM - General Chief Complaint: Abdominal Pain Stated Complaint: R OVARY PAIN Time Seen by Provider: 05/22/17 21:48 Source of Information: Reports: Patient History Limitations: Reports: No Limitations - History of Present Illness INITIAL COMMENTS - FREE TEXT/NARRATIVE: History of present illness: [I've seen this patient in the past with a right adnexal pain. She did follow up with the OB data management consultant as she told me she would. The OB data management consultant wants her to see a GI specialist before she removes her ovary and so that is going to be the plan. She has an appointment see her primary this Saturday for pain control and so she doesn't have any pain meds and seizures presenting now with continuation of his chronic care right ovarian pain that she's having. She tells me she does not have a history of troubles addictions or treatment for addiction. She's had no fevers chills sweats cough cold symptoms sore throat she had some nausea no vomiting no constipation diarrhea or dysuria.] Review of systems: As per history of present illness and below otherwise all systems reviewed and negative. Past medical history: As per history of present illness and as reviewed below otherwise noncontributory. Surgical history: As per history of present illness and as reviewed below otherwise noncontributory. Social history: No reported history of drug or alcohol abuse. Family history: As per history of present illness and as reviewed below otherwise noncontributory. Physical exam: HEENT: Atraumatic, normocephalic, pupils reactive, negative for conjunctival pallor or scleral icterus, mucous membranes moist, throat clear, neck supple, nontender, trachea midline. Lungs: Clear to auscultation, breath sounds equal bilaterally, chest nontender. Heart: S1S2, regular, negative for clicks, rubs, or JVD. Abdomen: She continues to have pain on palpation of the right suprapubic area similar to when I saw her last time. Pelvis: Stable nontender. Genitourinary: Deferred. Rectal: Deferred. Extremities: Atraumatic, negative for cords or calf pain. Neurovascular unremarkable. Neuro: Awake, alert, oriented. Exam nonfocal. Diagnostics: [] Therapeutics: [] Impression: [Right adnexal pain] Plan: [I'm providing her with 18 [place] to get her by until she can see her primary on Saturday. Jean she'll be able to get to the bottom of this and get it resolved.] Definitive disposition and diagnosis as appropriate pending reevaluation and review of above. right abdominal pain Pain Score (Numeric/FACES): 6 right shoulder Pain Score (Numeric/FACES): 6 - Related Data Allergies Allergy/AdvReac Type Severity Reaction Status Date / Time cephalexin [Cephalexin] Allergy Hives Verified 05/22/17 21:40 erythromycin base Allergy migraine Verified 05/22/17 21:40 [Erythromycin Base] Penicillins Allergy Rash Verified 05/22/17 21:40 Sulfa (Sulfonamide Allergy Rash Verified 05/22/17 21:40 Antibiotics) Home Meds: Home Meds Acetaminophen [Tylenol Extra Strength] 1,000 mg PO QID PRN 12/29/15 [History] Ibuprofen 800 mg PO QID PRN 12/29/15 [History] Cetirizine [ZyrTEC] 10 mg PO QAM 02/12/16 [History] Metoclopramide HCl [Reglan] 10 mg PO TID PRN 02/17/16 [History] diphenhydrAMINE HCl [Benadryl] 50 mg PO BEDTIME PRN 04/26/16 [History] Baclofen [Baclofen] 10 mg PO BEDTIME 09/09/16 [History] traMADol [Take Home: traMADol 50 MG, 4 Tab Pack] 50 mg PO Q6HR PRN 09/09/16 [ History] Nortriptyline [Nortriptyline] 100 mg PO BEDTIME 09/27/16 [History] Atenolol 25 mg PO TID 02/12/17 [History] Past Medical History HEENT History: Reports: Allergic Rhinitis, Impaired Vision Other HEENT History: TMJ Cardiovascular History: Reports: None Respiratory History: Reports: None Gastrointestinal History: Reports: None Genitourinary History: Reports: Renal Calculus, UTI, Recurrent, Other (See Below ) Other Genitourinary History: ovarian cysts 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: Dysfunctional Uterine Bleeding, Endometriosis, Other OB/BYN History: ovarian cysts-multiple Musculoskeletal History: Reports: Fibromyalgia Neurological History: Reports: Migraines Psychiatric History: Reports: Anxiety, Depression Endocrine/Metabolic History: Reports: None Hematologic History: Reports: Anemia Immunologic History: Reports: None Oncologic (Cancer) History: Reports: None Dermatologic History: Reports: None - Infectious Disease History Infectious Disease History: Reports: Chicken Pox, Measles - Past Surgical History Head Surgeries/Procedures: Reports: None HEENT Surgical History: Reports: None Cardiovascular Surgical History: Reports: None Respiratory Surgical History: Reports: None GI Surgical History: Reports: Appendectomy, Cholecystectomy Female Surgical History: Reports: Section, Hysterectomy, Lithotripsy /ESWL Endocrine Surgical History: Reports: None Neurological Surgical History: Reports: None Musculoskeletal Surgical History: Reports: None Oncologic Surgical History: Reports: None Dermatological Surgical History: Reports: None Social & Family History - Family History HEENT: Reports: Hearing Impairment Cardiac: Reports: CAD Musculoskeletal: Reports: Arthritis, Fibromyalgia Endocrine/Metabolic: Reports: Diabetes, Type I Oncologic: Reports: Uterine Other Oncologic Family History: grandma. - Tobacco Use Smoking Status *Q: Never Smoker Years of Tobacco use: 8 Packs/Tins Daily: 0.5 Used Tobacco, but Quit: Yes Month Tobacco Last Used: July Second Hand Smoke Exposure: No - Caffeine Use Caffeine Use: Reports: Coffee - Alcohol Use Days Per Week of Alcohol Use: 0 - Recreational Drug Use Recreational Drug Use: No Drug Use in Last 12 Months: No Recreational Drug Type: Reports: Marijuana/Hashish Recreational Drug Use Frequency: Not Used In Over 1 Year - Living Situation & Occupation Living situation: Reports: , with Family ED ROS GENERAL - Review of Systems Review Of Systems: ROS reveals no pertinent complaints other than HPI. ED EXAM, GENERAL - Physical Exam Exam: See Below Course - Vital Signs Last Recorded V/S: Last Vital Signs Temp 36.8 C 05/22/17 21:16 Pulse 96 05/22/17 21:16 Resp 16 05/22/17 21:16 BP 153/83 H 05/22/17 21:16 Pulse Ox 100 05/22/17 21:16 Departure - Departure Time of Disposition: 22:00 Disposition: Home, Self-Care 01 Condition: Good Clinical Impression: Adnexal pain - Discharge Information Forms: ED Department Discharge Additional Instructions: Follow-up with your doctor on Saturday as planned. I hope that the you aren't able to get this pain problem taken care of.
== END 2017-05-22 22:06 | disposition home or self-care (01) ==
LOC: JP.ED 20:40
DX: R10.2 Pelvic and perineal pain (principal); F41.9 Anxiety disorder, unspecified; F32.9 Major depressive disorder, single episode, unspecified; Z88.0 Allergy status to penicillin; Z88.1 Allergy status to other antibiotic agents; Z88.2 Allergy status to sulfonamides; Z87.440 Personal history of urinary (tract) infections; Z87.442 Personal history of urinary calculi; Z79.899 Other long term (current) drug therapy; Z90.49 Acquired absence of other specified parts of digestive tract; Z90.710 Acquired absence of both cervix and uterus; Z98.890 Other specified postprocedural states
CPT/HCPCS: 99283; 99284

== ENCOUNTER 2017-10-18 18:47 | Emergency (ER) | payer BC, MEDICAID ==
[2017-10-18] MEDS ORDERED: Ondansetron 4 MG Tab.DIS PO ONE (19:23)
--- NOTE | 2017-10-18 19:28 | EDM.PDOC ---
ED HPI GENERAL MEDICAL PROBLEM - General Chief Complaint: Syncope Stated Complaint: illness Time Seen by Provider: 10/18/17 19:20 Source of Information: Reports: Patient, EMS, RN Notes Reviewed History Limitations: Reports: No Limitations - History of Present Illness INITIAL COMMENTS - FREE TEXT/NARRATIVE: 32-year-old female presents emergency department today via EMS services for a syncopal event, she denies any symptoms before or after other than nausea afterwards there is no heart disease in the family she does have opioid dependence for chronic abdominal pain review of medication count she received 90 Percocets on the of this month pill bottle is empty, received 10 fentanyl patches also on the this month 3 remain Headache Pain Score (Numeric/FACES): 2 - Related Data Allergies Allergy/AdvReac Type Severity Reaction Status Date / Time cephalexin [Cephalexin] Allergy Hives Verified 05/22/17 21:40 erythromycin base Allergy migraine Verified 05/22/17 21:40 [Erythromycin Base] Penicillins Allergy Rash Verified 05/22/17 21:40 Sulfa (Sulfonamide Allergy Rash Verified 05/22/17 21:40 Antibiotics) Home Meds: Home Meds Ibuprofen 600 mg PO QID PRN 12/29/15 [History] traMADol [Take Home: traMADol 50 MG, 4 Tab Pack] 50 mg PO Q6HR PRN 09/09/16 [ History] Acetaminophen/oxyCODONE [Percocet 325-5 MG] 1 tab PO Q8H PRN 10/18/17 [History] Citalopram Hydrobromide [Celexa] 40 mg PO DAILY 10/18/17 [History] Dicyclomine [Bentyl] 10 mg PO TID PRN 10/18/17 [History] FLUoxetine HCl [Sarafem] 20 mg PO DAILY 10/18/17 [History] Metoprolol Tartrate [Lopressor] 50 mg PO BID 10/18/17 [History] ZOLMitriptan [Zomig] 1 dose NASRT ASDIRECTED 10/18/17 [History] fentaNYL [Fentanyl] 75 mcg TOP ASDIRECTED 10/18/17 [History] Past Medical History HEENT History: Reports: Allergic Rhinitis, Impaired Vision Other HEENT History: TMJ Genitourinary History: Reports: Renal Calculus, UTI, Recurrent, Other (See Below ) Other Genitourinary History: ovarian cysts 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: Reports: Dysfunctional Uterine Bleeding, Other OB/BYN History: ovarian cysts-multiple Musculoskeletal History: Reports: Fibromyalgia Neurological History: Reports: Migraines Psychiatric History: Reports: Anxiety, Depression Hematologic History: Reports: Anemia - Infectious Disease History Infectious Disease History: Reports: Chicken Pox, Measles - Past Surgical History Head Surgeries/Procedures: Reports: None HEENT Surgical History: Reports: None Cardiovascular Surgical History: Reports: None Respiratory Surgical History: Reports: None GI Surgical History: Reports: Appendectomy, Cholecystectomy Female Surgical History: Reports: Section, Hysterectomy, Lithotripsy /ESWL Endocrine Surgical History: Reports: None Neurological Surgical History: Reports: None Musculoskeletal Surgical History: Reports: None Oncologic Surgical History: Reports: None Dermatological Surgical History: Reports: None Social & Family History - Family History HEENT: Reports: Hearing Impairment Cardiac: Reports: CAD Musculoskeletal: Reports: Arthritis, Fibromyalgia Endocrine/Metabolic: Reports: Diabetes, Type I Oncologic: Reports: Uterine Other Oncologic Family History: grandma. - Tobacco Use Smoking Status *Q: Former Smoker Years of Tobacco use: 8 Packs/Tins Daily: 0.5 Used Tobacco, but Quit: Yes Month Tobacco Last Used: 2014 Second Hand Smoke Exposure: No - Caffeine Use Caffeine Use: Reports: Coffee - Alcohol Use Days Per Week of Alcohol Use: 0 - Recreational Drug Use Recreational Drug Use: No Drug Use in Last 12 Months: No Recreational Drug Type: Reports: Marijuana/Hashish Recreational Drug Use Frequency: Not Used In Over 1 Year - Living Situation & Occupation Living situation: Reports: , with Family ED ROS GENERAL - Review of Systems Review Of Systems: See Below Constitutional: Reports: Fatigue HEENT: Reports: No Symptoms Respiratory: Reports: No Symptoms Cardiovascular: Reports: Syncope GI/Abdominal: Reports: Nausea : Reports: No Symptoms Musculoskeletal: Reports: No Symptoms Skin: Reports: No Symptoms - Physical Exam Exam: See Below Text/Narrative:: General: Female, not in any distress, alert and oriented x3 HEENT: head is atraumatic normocephalic, eyes pupils equal round reactive to light, sclera clear no conjunctivitis appreciated. Ears tympanic membranes clear and whitmore landmarks and light reflex are present bilaterally canals are clear. Nose no septal deviation, nares are clear, no blood present. Mouth mucosa is moist and pink no erythema or exudate noted in soft palate, tongue is midline uvula is midline, dentition is intact. Neck: Supple no thyromegaly no tracheal deviation. Nodes: Cervical nodes subclavicular nodes nontender no palpable lymphadenopathy noted. Lungs: clear to auscultation bilaterally with symmetrical respirations, no adventitious noise appreciated. CV: Regular rate and rhythm S1 and S2 appreciated no murmurs rubs or gallops noted. Abdomen: Soft, nontender, no palpable masses or organomegaly appreciated, no distention no guarding bowel sounds are present, . Neuro: Cranial nerves II through XII grossly intact Skin: Warm and dry, intact Extremities: No lower extremity edema appreciated, pedal pulse is +2. Course - Vital Signs Last Recorded V/S: Last Vital Signs Temp 97.3 F 10/18/17 18:54 Pulse 101 H 10/18/17 20:04 Resp 19 10/18/17 20:04 BP 146/94 H 10/18/17 20:04 Pulse Ox 99 10/18/17 20:04 - Orders/Labs/Meds Orders: Active Orders 24 hr Category Date Time Status EKG Documentation Completion [RC] ASDIRECTED Care 10/18/17 19:23 Active EKG 12 Lead [EK] Stat Ther 10/18/17 19:23 Ordered Labs: Laboratory Tests 10/18/17 10/18/17 10/18/17 Range/Units 19:28 19:28 20:05 WBC 6.3 (4.5-11.0) K/uL RBC 4.14 (3.30-5.50) M/uL Hgb 12.3 (12.0-15.0) g/dL Hct 35.3 L (36.0-48.0) % MCV 85 (80-98) fL MCH 30 (27-31) pg MCHC 35 (32-36) % Plt Count 241 (150-400) K/uL Neut % (Auto) 65 (36-66) % Lymph % (Auto) 24 (24-44) % [place] % (Auto) 6 (2-6) % Eos % (Auto) 5 H (2-4) % Baso % (Auto) 1 (0-1) % Sodium 142 (140-148) mmol/L Potassium 3.6 (3.6-5.2) mmol/L Chloride 103 (100-108) mmol/L Carbon Dioxide 30 (21-32) mmol/L Anion Gap 9.3 (5.0-14.0) mmol/L BUN 12 (7-18) mg/dL Creatinine 0.7 (0.6-1.0) mg/dL Est Cr Clr Drug Dosing 107.01 mL/min Estimated GFR (MDRD) > 60 (>60) Glucose 98 (74-106) mg/dL Calcium 8.6 (8.5-10.1) mg/dL Urine Color Yellow Urine Appearance Slightly cloudy Urine pH 6.0 (4.5-8.0) Ur Specific [place] 1.020 (1.008-1.030) Urine Protein Negative (NEGATIVE) mg/dL Urine Glucose (UA) Normal (NEGATIVE) mg/dL Urine Ketones Negative (NEGATIVE) mg/dL Urine Occult Blood Negative (NEGATIVE) Urine Nitrite Negative (NEGATIVE) Urine Bilirubin Negative (NEGATIVE) Urine Urobilinogen Normal (NORMAL) mg/dL Ur Leukocyte Esterase Moderate (NEGATIVE) Urine RBC Not seen (0-5) Urine WBC 5-10 H (0-5) Ur Epithelial Cells Many Amorphous Sediment Not seen Urine Bacteria Many Urine Mucus Not seen Urine Other Urine Opiates Screen (NEGATIVE) Ur Oxycodone Screen (NEGATIVE) Urine Methadone Screen (NEGATIVE) Ur Propoxyphene Screen (NEGATIVE) Ur Barbiturates Screen (NEGATIVE) Ur Tricyclics Screen (NEGATIVE) Ur Phencyclidine Scrn (NEGATIVE) Ur Amphetamine Screen (NEGATIVE) U Methamphetamines Scrn (NEGATIVE) Urine MDMA Screen (NEGATIVE) U Benzodiazepines Scrn (NEGATIVE) U Cocaine Metab Screen (NEGATIVE) U Marijuana (THC) Screen (NEGATIVE) 10/18/17 Range/Units 20:56 WBC (4.5-11.0) K/uL RBC (3.30-5.50) M/uL Hgb (12.0-15.0) g/dL Hct (36.0-48.0) % MCV (80-98) fL MCH (27-31) pg MCHC (32-36) % Plt Count (150-400) K/uL Neut % (Auto) (36-66) % Lymph % (Auto) (24-44) % [place] % (Auto) (2-6) % Eos % (Auto) (2-4) % Baso % (Auto) (0-1) % Sodium (140-148) mmol/L Potassium (3.6-5.2) mmol/L Chloride (100-108) mmol/L Carbon Dioxide (21-32) mmol/L Anion Gap (5.0-14.0) mmol/L BUN (7-18) mg/dL Creatinine (0.6-1.0) mg/dL Est Cr Clr Drug Dosing mL/min Estimated GFR (MDRD) (>60) Glucose (74-106) mg/dL Calcium (8.5-10.1) mg/dL Urine Color Urine Appearance Urine pH (4.5-8.0) Ur Specific [place] (1.008-1.030) Urine Protein (NEGATIVE) mg/dL Urine Glucose (UA) (NEGATIVE) mg/dL Urine Ketones (NEGATIVE) mg/dL Urine Occult Blood (NEGATIVE) Urine Nitrite (NEGATIVE) Urine Bilirubin (NEGATIVE) Urine Urobilinogen (NORMAL) mg/dL Ur Leukocyte Esterase (NEGATIVE) Urine RBC (0-5) Urine WBC (0-5) Ur Epithelial Cells Amorphous Sediment Urine Bacteria Urine Mucus Urine Other Urine Opiates Screen Positive H (NEGATIVE) Ur Oxycodone Screen Positive H (NEGATIVE) Urine Methadone Screen Negative (NEGATIVE) Ur Propoxyphene Screen Negative (NEGATIVE) Ur Barbiturates Screen Negative (NEGATIVE) Ur Tricyclics Screen Positive H (NEGATIVE) Ur Phencyclidine Scrn Negative (NEGATIVE) Ur Amphetamine Screen Negative (NEGATIVE) U Methamphetamines Scrn Negative (NEGATIVE) Urine MDMA Screen Negative (NEGATIVE) U Benzodiazepines Scrn Negative (NEGATIVE) U Cocaine Metab Screen Negative (NEGATIVE) U Marijuana (THC) Screen Negative (NEGATIVE) Meds: Medications Discontinued Medications Generic Name Dose Route Start Last Admin Trade Name Ju[place] PRN Reason Stop Dose Admin Ondansetron HCl 4 mg 10/18/17 19:23 10/18/17 19:30 Zofran Odt PO 10/18/17 19:24 4 mg ONETIME ONE Administration Departure - Departure Time of Disposition: 21:12 Disposition: Home, Self-Care 01 Condition: Good Clinical Impression: Syncope Qualifiers: Syncope type: unspecified Qualified Code(s): R55 - Syncope and collapse - Discharge Information Referrals: PCP,None [Primary Care Provider] - Forms: ED Department Discharge Additional Instructions: Please followup with your primary care provider in 3-5 days if not better, please call return to the emergency department with worsening of symptoms. - My Orders Last 24 Hours: My Active Orders 10/18/17 19:23 EKG Documentation Completion [RC] ASDIRECTED EKG 12 Lead [EK] Stat - Assessment/Plan Last 24 Hours: My Active Orders 10/18/17 19:23 EKG Documentation Completion [RC] ASDIRECTED EKG 12 Lead [EK] Stat Plan: Assessment Acuity = acute Site and laterality = syncopal event Etiology = unclear etiology Manifestations = none Location of injury = Home Lab values = CBC, CMP unremarkable urinalysis negative urine drug screen positive for oxycodone and try cyclic switches appropriate EKG demonstrates sinus rhythm Plan I did review lab work EKG results with her she does admit to poor oral intake of a follow-up with her primary care 3-5 days for reevaluation This note was dictated using [employer] voice recognition software please call with any questions on syntax or janes.
[2017-10-18 20:05] VITALS: BP 146/94
== END 2017-10-18 21:39 | disposition home or self-care (01) ==
LOC: JP.ED 18:47
DX: R55 Syncope and collapse (principal); Z88.0 Allergy status to penicillin; Z88.1 Allergy status to other antibiotic agents; Z88.2 Allergy status to sulfonamides; Z79.899 Other long term (current) drug therapy; Z87.891 Personal history of nicotine dependence
CPT/HCPCS: 36415; 80048; 80305; 81001; 85025; 93005; 99284; A9270; 93010

== ENCOUNTER 2018-05-29 20:39 | Emergency (ER) | payer MEDICAID ==
[2018-05-29 21:11] VITALS: BP 146/98
[2018-05-29] MEDS ORDERED: LORazepam 2 MG/ML SDV IM ONE (21:51)
[2018-05-29] MEDS ORDERED: Ketorolac 60 MG/2 ML SDV IM ONE (21:51)
--- NOTE | 2018-05-29 21:58 | EDM.PDOC ---
ED HPI GENERAL MEDICAL PROBLEM - General Chief Complaint: General Stated Complaint: PAIN Time Seen by Provider: 05/29/18 21:40 Source of Information: Reports: Patient, Family History Limitations: Reports: No Limitations - History of Present Illness INITIAL COMMENTS - FREE TEXT/NARRATIVE: 33-year-old female with chronic pain and anxiety is in with an acute exacerbation because she just "wants to sleep tonight". She brought her mother in with her who was very insistent that she needs something to help her sleep. She recently stopped tramadol and clonazepam and is still on oxycodone. Her pain is mostly in her lower extremities and lower abdomen. Onset: Unknown/Unsure Associated Symptoms: Reports: Malaise, Weakness, Other (Depression, tearful). Denies: Chest Pain, Cough hip, leg, pelvic, abd Pain Score (Numeric/FACES): 8 - Related Data Allergies Allergy/AdvReac Type Severity Reaction Status Date / Time cephalexin [Cephalexin] Allergy Hives Verified 05/29/18 21:11 erythromycin base Allergy migraine Verified 05/29/18 21:11 [Erythromycin Base] Penicillins Allergy Rash Verified 05/29/18 21:11 Sulfa (Sulfonamide Allergy Rash Verified 05/29/18 21:11 Antibiotics) Home Meds: Home Meds Baclofen 10 mg PO BEDTIME 05/29/18 [History] Citalopram Hydrobromide [Celexa] 40 mg PO BEDTIME 05/29/18 [History] Dicyclomine [Bentyl] 10 mg PO TID 05/29/18 [History] Gabapentin [Neurontin] 600 mg PO ASDIRECTED 05/29/18 [History] Ibuprofen [Motrin] 600 - 800 mg PO TID PRN 05/29/18 [History] Magnesium Oxide 250 mg PO DAILY 05/29/18 [History] Multivitamin [Daily Multiple Vitamin] 1 tab PO DAILY 05/29/18 [History] Nortriptyline 100 mg PO BEDTIME 05/29/18 [History] oxyCODONE HCl/Acetaminophen [Oxycodone-Acetaminophen 5-325] 1 tab PO TID PRN [History] Past Medical History HEENT History: Reports: Allergic Rhinitis, Impaired Vision Other HEENT History: TMJ Cardiovascular History: Reports: None Respiratory History: Reports: None Gastrointestinal History: Reports: None Genitourinary History: Reports: Renal Calculus, UTI, Recurrent, Other (See Below ) Other Genitourinary History: ovarian cysts 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: Dysfunctional Uterine Bleeding, Other 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 SALESPERSON History: ovarian cysts-multiple Musculoskeletal History: Reports: Fibromyalgia Neurological History: Reports: Migraines Psychiatric History: Reports: Anxiety, Depression Endocrine/Metabolic History: Reports: None Hematologic History: Reports: Anemia Immunologic History: Reports: None Oncologic (Cancer) History: Reports: None Dermatologic History: Reports: None - Infectious Disease History Infectious Disease History: Reports: Chicken Pox, Measles - Past Surgical History Head Surgeries/Procedures: Reports: None Cardiovascular Surgical History: Reports: None Respiratory Surgical History: Reports: None GI Surgical History: Reports: Appendectomy, Cholecystectomy Female Surgical History: Reports: Section, Hysterectomy, Lithotripsy /ESWL Oncologic Surgical History: Reports: None Social & Family History - Family History HEENT: Reports: Hearing Impairment Cardiac: Reports: CAD Musculoskeletal: Reports: Arthritis, Fibromyalgia Endocrine/Metabolic: Reports: Diabetes, Type I Oncologic: Reports: Uterine Other Oncologic Family History: grandma. - Tobacco Use Smoking Status *Q: Never Smoker - Caffeine Use Caffeine Use: Reports: Soda - Recreational Drug Use Recreational Drug Use: No - Living Situation & Occupation Living situation: Reports: , with Family ED ROS GENERAL - Review of Systems Review Of Systems: See Below Constitutional: Reports: Malaise. Denies: Fever, Chills Respiratory: Denies: Shortness of Breath Cardiovascular: Denies: Chest Pain GI/Abdominal: Reports: Abdominal Pain. Denies: Nausea : Reports: No Symptoms Musculoskeletal: Reports: Back Pain, Leg Pain Skin: Reports: No Symptoms Neurological: Denies: Headache ED EXAM, GENERAL - Physical Exam Exam: See Below Exam Limited By: No Limitations General Appearance: Alert, Anxious Head: Atraumatic Respiratory/Chest: No Respiratory Distress GI/Abdominal: Normal Bowel Sounds, Tender (Some discomfort with palpation of the lower abdomen, no guarding) Back Exam: Other (Reacts with tenderness to even mild palpation along the parathoracic muscles) Course - Vital Signs Last Recorded V/S: Last Vital Signs Temp 98.6 F 05/29/18 21:19 Pulse 93 05/29/18 21:19 Resp 16 05/29/18 21:19 BP 146/98 H 05/29/18 21:19 Pulse Ox 100 05/29/18 21:19 - Orders/Labs/Meds Meds: Medications Discontinued Medications Generic Name Dose Route Start Last Admin Trade Name Juana PRN Reason Stop Dose Admin Ketorolac Tromethamine 60 mg 05/29/18 21:51 05/29/18 22:00 Toradol IM 05/29/18 21:52 60 mg ONETIME ONE Administration Lorazepam 1 mg 05/29/18 21:51 05/29/18 21:59 Ativan IM 05/29/18 21:52 1 mg ONETIME ONE Administration - Re-Assessments/Exams Free Text/Narrative Re-Assessment/Exam: 05/29/18 21:57 Discussed the VERTICAL PUNCH OPERATOR search with the patient and the mother, and both were still very insistent something needs to be done. I offered a milligram of Ativan IM along with 60 mg of IM Toradol but I could not provide more narcotics. 05/30/18 01:03 Patient was given an extra 20 doses of oral Toradol to take up to 4 times a day. Departure - Departure Time of Disposition: 22:13 Disposition: Home, Self-Care 01 Condition: Good Clinical Impression: Fibromyalgia, Chronic pain - Discharge Information Instructions: Chronic Pain, Adult Referrals: Kwabena Simmons MD [Primary Care Provider] - Forms: ED Department Discharge Care Plan Goals: Rest tonight and resume your regular medications and activity tomorrow. Recheck with your regular doctor next week if not improving satisfactorily.
== END 2018-05-29 22:13 | disposition home or self-care (01) ==
LOC: JP.ED 20:39
DX: M79.7 Fibromyalgia (principal); G89.29 Other chronic pain; F41.9 Anxiety disorder, unspecified; F32.9 Major depressive disorder, single episode, unspecified; Z88.1 Allergy status to other antibiotic agents; Z88.0 Allergy status to penicillin
CPT/HCPCS: 96372; 99283; J1885; J2060

== ENCOUNTER 2019-05-31 22:01 | Emergency (ER) | payer MEDICAID ==
[2019-05-31 22:35] VITALS: BP 147/82
[2019-05-31] MEDS ORDERED: Ketorolac 60 MG/2 ML SDV IM ONE (23:00)
--- NOTE | 2019-05-31 23:07 | EDM.PDOC ---
ED HPI GENERAL MEDICAL PROBLEM - General Chief Complaint: Lower Extremity Injury/Pain Stated Complaint: HIP PAIN Time Seen by Provider: 05/31/19 22:50 Source of Information: Reports: Patient, Old Records, RN History Limitations: Reports: Other (do not have her [place] records) - History of Present Illness INITIAL COMMENTS - FREE TEXT/NARRATIVE: 34 yo female with possible fibromyalgia vs other. Has pain "all over". Is followed by Dr. Simmons in [place]. Her next appt is not for a couple weeks. Her sx' s wax and wane and seem worse tonight after doing some school shopping today. Doesn't want any narcotics as she has a pain contract with Dr. Simmons. Onset: Gradual Onset Date: 05/31/19 Onset Time: 15:00 Duration: Hour(s):, Constant Location: Reports: Generalized Quality: Reports: Ache Severity: Moderate Improves with: Reports: None Worsens with: Reports: Other (? fatigue) Context: Reports: Other (see HPI) Associated Symptoms: Reports: No Other Symptoms Treatments VAT OPERATOR: Reports: Other (see below) (none) generalized Pain Score (Numeric/FACES): 7 - Related Data Allergies Allergy/AdvReac Type Severity Reaction Status Date / Time cephalexin [Cephalexin] Allergy Hives Verified 05/31/19 22:30 erythromycin base Allergy migraine Verified 05/31/19 22:30 [Erythromycin Base] Penicillins Allergy Rash Verified 05/31/19 22:30 Sulfa (Sulfonamide Allergy Rash Verified 05/31/19 22:30 Antibiotics) Home Meds: Home Meds Baclofen 10 mg PO BEDTIME PRN 05/29/18 [History] Citalopram Hydrobromide [Celexa] 40 mg PO BEDTIME 05/29/18 [History] Gabapentin [Neurontin] 1,200 mg PO TID 05/29/18 [History] Ibuprofen [Motrin] 600 - 800 mg PO TID PRN 05/29/18 [History] Atenolol 1 tab PO DAILY 05/31/19 [History] Cetirizine [ZyrTEC] 10 mg PO DAILY 05/31/19 [History] Naproxen 1 tab PO Q6H PRN 05/31/19 [History] Onabotulinumtoxina [Botox] 100 units .XX Q3M 05/31/19 [History] buPROPion HCl [Wellbutrin Xl] 300 mg PO DAILY 05/31/19 [History] oxyCODONE 5 mg PO TID PRN 05/31/19 [History] Past Medical History HEENT History: Reports: Allergic Rhinitis, Impaired Vision Other HEENT History: TMJ Cardiovascular History: Reports: None Respiratory History: Reports: None Gastrointestinal History: Reports: None Genitourinary History: Reports: Renal Calculus, UTI, Recurrent, Other (See Below ) Other Genitourinary History: ovarian cysts 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: Dysfunctional Uterine Bleeding, 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 SHEAR OPERATOR History: ovarian cysts-multiple Musculoskeletal History: Reports: Fibromyalgia Neurological History: Reports: Migraines Psychiatric History: Reports: Anxiety, Depression Endocrine/Metabolic History: Reports: None Hematologic History: Reports: Anemia Immunologic History: Reports: None Oncologic (Cancer) History: Reports: None Dermatologic History: Reports: None - Infectious Disease History Infectious Disease History: Reports: Chicken Pox, Measles - Past Surgical History Head Surgeries/Procedures: Reports: None Cardiovascular Surgical History: Reports: None Respiratory Surgical History: Reports: None GI Surgical History: Reports: Appendectomy, Cholecystectomy Female Surgical History: Reports: Section, Hysterectomy, Lithotripsy /ESWL Oncologic Surgical History: Reports: None Social & Family History - Family History HEENT: Reports: Hearing Impairment Cardiac: Reports: CAD Musculoskeletal: Reports: Arthritis, Fibromyalgia Endocrine/Metabolic: Reports: Diabetes, Type I Oncologic: Reports: Uterine Other Oncologic Family History: grandma. - Tobacco Use Smoking Status *Q: Former Smoker Used Tobacco, but Quit: Yes Month/Year Tobacco Last Used: 2015 - Caffeine Use Caffeine Use: Reports: Energy Drinks, Soda - Recreational Drug Use Recreational Drug Use: No - Living Situation & Occupation Living situation: Reports: , with Family Review of Systems - Review of Systems Review Of Systems: See Below Constitutional: Reports: No Symptoms Mouth/Throat: Reports: No Symptoms Respiratory: Reports: No Symptoms Cardiovascular: Reports: No Symptoms GI/Abdominal: Reports: No Symptoms Genitourinary: Reports: No Symptoms Musculoskeletal: Reports: Muscle Pain (diffusely) Skin: Reports: No Symptoms Neurological: Reports: No Symptoms Psychiatric: Reports: No Symptoms ED EXAM, GENERAL - Physical Exam Exam: See Below Exam Limited By: No Limitations General Appearance: Alert, WD/WN, No Apparent Distress Eye Exam: Right Eye: Normal Inspection Ears: Normal External Exam, Normal Canal, Hearing Grossly Normal Ear Exam: Bilateral Ear: Auricle Normal, Canal Normal Nose: Normal Inspection, No Blood Throat/Mouth: Normal Inspection, Normal Lips, Normal Oropharynx, Normal Voice, No Airway Compromise Head: Atraumatic, Normocephalic Neck: Normal Inspection Respiratory/Chest: No Respiratory Distress, Lungs Clear, Normal Breath Sounds, No Accessory Muscle Use Cardiovascular: Regular Rate, Rhythm, No Edema GI/Abdominal: Normal Bowel Sounds, Soft, Non-Tender, No Distention Back Exam: Normal Inspection. No: CVA Tenderness (R), CVA Tenderness (L) Extremities: Normal Inspection Neurological: Alert, Oriented, CN II-XII Intact, Normal Cognition, No Motor/ Sensory Deficits Psychiatric: Normal Affect, Normal Mood Skin Exam: Warm, Dry, Intact, Normal Color, No Rash Course - Vital Signs Last Recorded V/S: Last Vital Signs Temp 35.7 C 05/31/19 22:34 Pulse 78 05/31/19 22:34 Resp 18 05/31/19 22:34 BP 147/82 H 05/31/19 22:34 Pulse Ox 99 05/31/19 22:34 - Orders/Labs/Meds Meds: Medications Discontinued Medications Generic Name Dose Route Start Last Admin Trade Name Freq PRN Reason Stop Dose Admin Ketorolac Tromethamine 60 mg 05/31/19 23:00 Toradol IM 05/31/19 23:01 ONETIME ONE Departure - Departure Time of Disposition: 23:15 Disposition: Home, Self-Care 01 Condition: Fair Clinical Impression: Diffuse pain - Discharge Information *PRESCRIPTION DRUG MONITORING PROGRAM REVIEWED*: No *COPY OF PRESCRIPTION DRUG MONITORING REPORT IN PATIENT JEN: No Referrals: Kwabena Simmons MD [Primary Care Provider] - Additional Instructions: Use Toradol as directed, take with food. F/U with your provider as soon as you can.
== END 2019-05-31 23:16 | disposition home or self-care (01) ==
LOC: JP.ED 22:01
DX: R52 Pain, unspecified (principal); F41.9 Anxiety disorder, unspecified; F32.9 Major depressive disorder, single episode, unspecified; Z88.1 Allergy status to other antibiotic agents; Z88.0 Allergy status to penicillin; Z88.2 Allergy status to sulfonamides; Z79.899 Other long term (current) drug therapy; Z87.442 Personal history of urinary calculi; Z87.891 Personal history of nicotine dependence
CPT/HCPCS: 96372; 99283; J1885

== ENCOUNTER 2019-06-13 20:07 | Emergency (ER) | payer MEDICAID ==
[2019-06-13] MEDS ORDERED: Ondansetron 4 MG/2 ML SDV IVPUSH ONE (20:43)
[2019-06-13] MEDS ORDERED: fentaNYL 100 MCG/2 ML SDV IVPUSH ONE (20:44)
[2019-06-13] MEDS ORDERED: Sodium Chloride 0.9% 1,000 ML IV SCH (20:45)
[2019-06-13] MEDS ORDERED: Ketorolac 30 MG/ML SDV IVPUSH ONE (20:45)
--- NOTE | 2019-06-13 21:18 | EDM.PDOC ---
<Elidia Huang - Last Filed: 06/13/19 22:47> ED HPI GENERAL MEDICAL PROBLEM - General Chief Complaint: Abdominal Pain Stated Complaint: PAIN LOWER ABD SHAKING Time Seen by Provider: 06/13/19 20:20 Source of Information: Reports: Patient History Limitations: Reports: No Limitations - History of Present Illness INITIAL COMMENTS - FREE TEXT/NARRATIVE: 34 yo female presents with right flank and right abd pain. pain has been present for 1 week she was feeling better today then while she was standing in line at [facility] she had a severe RLQ pain. This pain made her nauseated and sweaty, felt sharp like a knife. status post hysterectomy however ovaries remain. post appendectomy. she does have hx of kidney stones. fatigue, chills , and 1 week of diarrhea. Right Lower Abdomen Pain Score (Numeric/FACES): 8 - Related Data Allergies Allergy/AdvReac Type Severity Reaction Status Date / Time cephalexin [Cephalexin] Allergy Hives Verified 05/31/19 22:30 erythromycin base Allergy migraine Verified 05/31/19 22:30 [Erythromycin Base] Penicillins Allergy Rash Verified 05/31/19 22:30 Sulfa (Sulfonamide Allergy Rash Verified 05/31/19 22:30 Antibiotics) Home Meds: Home Meds Baclofen 10 mg PO BEDTIME PRN 05/29/18 [History] Gabapentin [Neurontin] 1,200 mg PO TID 05/29/18 [History] Ibuprofen [Motrin] 600 - 800 mg PO TID PRN 05/29/18 [History] Atenolol 1 tab PO DAILY 05/31/19 [History] Cetirizine [ZyrTEC] 10 mg PO DAILY 05/31/19 [History] Naproxen 1 tab PO Q6H PRN 05/31/19 [History] Onabotulinumtoxina [Botox] 100 units .XX Q3M 05/31/19 [History] buPROPion HCl [Wellbutrin Xl] 300 mg PO DAILY 05/31/19 [History] oxyCODONE 5 mg PO TID PRN 05/31/19 [History] Past Medical History HEENT History: Reports: Allergic Rhinitis, Impaired Vision Other HEENT History: TMJ Cardiovascular History: Reports: None Respiratory History: Reports: None Gastrointestinal History: Reports: None Genitourinary History: Reports: Renal Calculus, UTI, Recurrent, Other (See Below ) Other Genitourinary History: ovarian cysts DEBATE DIRECTOR History: Reports: Dysfunctional Uterine Bleeding, Other DEBATE DIRECTOR History: ovarian cysts-multiple Musculoskeletal History: Reports: Fibromyalgia Neurological History: Reports: Migraines Psychiatric History: Reports: Anxiety, Depression Endocrine/Metabolic History: Reports: None Hematologic History: Reports: Anemia Immunologic History: Reports: None Oncologic (Cancer) History: Reports: None Dermatologic History: Reports: None - Infectious Disease History Infectious Disease History: Reports: Chicken Pox, Measles - Past Surgical History Head Surgeries/Procedures: Reports: None Cardiovascular Surgical History: Reports: None Respiratory Surgical History: Reports: None GI Surgical History: Reports: Appendectomy, Cholecystectomy Female Surgical History: Reports: Section, Hysterectomy, Lithotripsy /ESWL Oncologic Surgical History: Reports: None Social & Family History - Family History HEENT: Reports: Hearing Impairment Cardiac: Reports: CAD Musculoskeletal: Reports: Arthritis, Fibromyalgia Endocrine/Metabolic: Reports: Diabetes, Type I Oncologic: Reports: Uterine Other Oncologic Family History: grandma. - Tobacco Use Smoking Status *Q: Never Smoker - Caffeine Use Caffeine Use: Reports: Coffee, Soda, Tea - Recreational Drug Use Recreational Drug Use: No - Living Situation & Occupation Living situation: Reports: , with Family ED ROS GENERAL - Review of Systems Review Of Systems: See Below Constitutional: Reports: Fever, Chills, Fatigue Respiratory: Denies: Shortness of Breath, Wheezing Cardiovascular: Denies: Chest Pain GI/Abdominal: Reports: Abdominal Pain, Anorexia, Diarrhea : Reports: Dysuria, Flank Pain Skin: Denies: Rash ED EXAM, GI/ABD - Physical Exam Exam: See Below Exam Limited By: No Limitations General Appearance: Alert, WD/WN, Mild Distress Neck: Normal Inspection, Supple, Non-Tender, Full Range of Motion. No: Lymphadenopathy (R), Lymphadenopathy (L) Respiratory/Chest: No Respiratory Distress, Lungs Clear, Normal Breath Sounds, No Accessory Muscle Use, Chest Non-Tender. No: Crackles, Rhonchi, Wheezing Cardiovascular: No Murmur, Tachycardia GI/Abdominal Exam: Normal Bowel Sounds, Soft, No Mass, Tender (right suprapubic) Neurological: Alert, Oriented Course - Vital Signs Last Recorded V/S: Last Vital Signs Temp 36.5 C 06/13/19 20:31 Pulse 87 06/13/19 22:43 Resp 22 H 06/13/19 20:31 BP 137/89 06/13/19 22:43 Pulse Ox 99 06/13/19 22:43 - Orders/Labs/Meds Orders: Active Orders 24 hr Category Date Time Status Enema [RC] ASDIRECTED Care 06/14/19 00:00 Inactive Abdomen 1V Flat [CR] Stat Exams 06/13/19 23:34 Ordered Pelvis Non OB Ltd [US] Stat Exams 06/13/19 22:19 Taken CULTURE URINE [RM] Stat Lab 06/13/19 22:15 Received Sodium Chloride 0.9% [Normal Saline] 1,000 ml Med 06/13/19 20:45 Active IV ASDIRECTED Medication Orders Sodium Chloride (Normal Saline) 1,000 mls @ 999 mls/hr IV ASDIRECTED CRISTINA Last Admin: 06/13/19 21:01 Dose: 999 mls/hr Labs: Laboratory Tests 06/13/19 06/13/19 06/13/19 Range/Units 21:03 21:03 21:52 WBC 9.9 (4.5-11.0) K/uL RBC 4.84 (3.30-5.50) M/uL Hgb 13.9 (12.0-15.0) g/dL Hct 41.0 (36.0-48.0) % MCV 85 (80-98) fL MCH 29 (27-31) pg MCHC 34 (32-36) % Plt Count 299 (150-400) K/uL Neut % (Auto) 62 (36-66) % Lymph % (Auto) 27 (24-44) % [place] % (Auto) 7 H (2-6) % Eos % (Auto) 4 (2-4) % Baso % (Auto) 1 (0-1) % Sodium 142 (140-148) mmol/L Potassium 3.6 (3.6-5.2) mmol/L Chloride 105 (100-108) mmol/L Carbon Dioxide 24 (21-32) mmol/L Anion Gap 13.1 (5.0-14.0) mmol/L BUN 7 (7-18) mg/dL Creatinine 0.9 (0.6-1.0) mg/dL Est Cr Clr Drug Dosing 78.51 mL/min Estimated GFR (MDRD) > 60 (>60) Glucose 80 (74-106) mg/dL Calcium 8.8 (8.5-10.1) mg/dL Total Bilirubin 0.5 D (0.2-1.0) mg/dL AST 16 (15-37) U/L ALT 15 (12-78) U/L Alkaline Phosphatase 117 H (46-116) U/L Total Protein 8.2 (6.4-8.2) g/dL Albumin 4.7 (3.4-5.0) g/dL Globulin 3.5 (2.3-3.5) g/dL Albumin/Globulin Ratio 1.3 (1.2-2.2) Urine Color Yellow (YELLOW) Urine Appearance Slightly cloudy A (CLEAR) Urine pH 7.0 (5.0-8.0) Ur Specific [place] 1.020 (1.008-1.030) Urine Protein Negative (NEGATIVE) mg/dL Urine Glucose (UA) Negative (NEGATIVE) mg/dL Urine Ketones Negative (NEGATIVE) mg/dL Urine Occult Blood Negative (NEGATIVE) Urine Nitrite Negative (NEGATIVE) Urine Bilirubin Negative (NEGATIVE) Urine Urobilinogen 0.2 (0.2-1.0) EU/dL Ur Leukocyte Esterase Negative (NEGATIVE) Urine RBC 0-5 (0-5) Urine WBC 0-5 (0-5) Ur Epithelial Cells Moderate Amorphous Sediment Not seen Urine Bacteria Many Urine Mucus Not seen Meds: Medications Generic Name Dose Route Start Last Admin Trade Name Juaan PRN Reason Stop Dose Admin Sodium Chloride 1,000 mls @ 999 mls/hr 06/13/19 20:45 06/13/19 21:01 Normal Saline IV 999 mls/hr ASDIRECTED CRISTINA Administration Discontinued Medications Generic Name Dose Route Start Last Admin Trade Name Juana PRN Reason Stop Dose Admin Fentanyl 50 mcg 06/13/19 20:44 06/13/19 21:03 Sublimaze IVPUSH 06/13/19 20:45 50 mcg ONETIME ONE Administration Hydromorphone HCl 0.5 mg 06/13/19 21:51 06/13/19 22:01 Dilaudid IVPUSH 06/13/19 21:52 0.5 mg ONETIME ONE Administration Ketorolac Tromethamine 30 mg 06/13/19 20:45 06/13/19 21:03 Toradol IVPUSH 06/13/19 20:46 30 mg ONETIME ONE Administration Metoclopramide HCl 5 mg 06/13/19 21:51 06/13/19 22:02 Reglan IVPUSH 06/13/19 21:52 5 mg ONETIME ONE Administration Ondansetron HCl 4 mg 06/13/19 20:43 06/13/19 21:03 Zofran IVPUSH 06/13/19 20:44 4 mg ONETIME ONE Administration - Re-Assessments/Exams Free Text/Narrative Re-Assessment/Exam: 06/13/19 22:47 pain continues to be sharp after IV pain medication. pt does of hx of right ovarian cyst with the most recent being 4 months ago. She did have follow-up US of this cyst and it had resolved. CBC is normal. UA does have bacteria but without WBC and no blood. Departure - Departure Disposition: Home, Self-Care 01 Clinical Impression: Abdominal pain Qualifiers: Abdominal location: lower abdomen, unspecified Qualified Code(s): R10.30 - Lower abdominal pain, unspecified Constipation Qualifiers: Constipation type: slow transit constipation Qualified Code(s): K59.01 - Slow transit constipation - Discharge Information Instructions: Constipation, Adult Referrals: Kwabena Simmons MD [Primary Care Provider] - Forms: ED Department Discharge Additional Instructions: Try Miralax twice daily until a good BM results, then once daily for prevention. Try a Fleets enema to get things started. Eat a high fiber diet and drink ample fluids. Recheck with your doctor as needed. - My Orders Last 24 Hours: My Active Orders 06/13/19 23:34 Abdomen 1V Flat [CR] Stat 06/14/19 00:00 Enema [RC] ASDIRECTED - Assessment/Plan Last 24 Hours: My Active Orders 06/13/19 23:34 Abdomen 1V Flat [CR] Stat 06/14/19 00:00 Enema [RC] ASDIRECTED <Mic Forbes - Last Filed: 06/14/19 00:04> Course - Radiology Interpretation Free Text/Narrative:: Pelvic US-negative for ovarian cyst or torsion. KUB [id number] stool Departure - Departure Time of Disposition: 00:03 Condition: Fair - Discharge Information *PRESCRIPTION DRUG MONITORING PROGRAM REVIEWED*: No *COPY OF PRESCRIPTION DRUG MONITORING REPORT IN PATIENT JEN: No
[2019-06-13] MEDS ORDERED: Metoclopramide 10 MG/2 ML SDV IVPUSH ONE (21:51)
[2019-06-13] MEDS ORDERED: HYDROmorphone 0.5 MG/0.5 ML Syringe IVPUSH ONE (21:51)
--- NOTE | 2019-06-14 00:16 | CRLUS ---
INDICATION: RT SUPRAPUBIC / RT FLANK PAIN INDICATION: Suprapubic and right flank pain TECHNIQUE: Ultrasound pelvis transabdominal only COMPARISON: 01/10/2017 FINDINGS: Uterus: History of hysterectomy. Right ovary: 5.4 centimeter x 3.3 centimeter x 2.6 centimeter. No ovarian or adnexal masses. Normal arterial and venous blood flow. Left ovary: 3.9 centimeter x 3.3 centimeter x 2.8 centimeter. No ovarian or adnexal masses. Normal arterial and venous blood flow. Cul-de-sac: No significant free fluid. IMPRESSION: Unremarkable pelvic ultrasound. History of hysterectomy. Dictated by Ming Samaniego MD @ 06/14/2019 12:14:14 AM Dictated by: Ming Samaniego MD @ 06/14/2019 00:14:21 (Electronically Signed)
--- NOTE | 2019-06-14 00:18 | CRLCR ---
INDICATION: Pelvic pain TECHNIQUE: Abdomen 2 view. COMPARISON: None FINDINGS: Bowel: Bowel pattern is normal. Diffuse colonic fecal retention. Soft tissues: No sign of free air. No sign of soft tissue mass. No suspicious calcifications. Surgical clips right upper quadrant. Bones: Unremarkable for age. IMPRESSION: Diffuse colonic fecal retention. Dictated by Ming Samaniego MD @ 06/14/2019 12:17:08 AM Dictated by: Ming Samaniego MD @ 06/14/2019 00:17:13 (Electronically Signed)
[2019-06-14 00:40] VITALS: BP 125/68; PULSE 83
== END 2019-06-14 00:30 | disposition home or self-care (01) ==
LOC: JP.ED 20:07
DX: K59.00 Constipation, unspecified (principal); R10.33 Periumbilical pain; F41.9 Anxiety disorder, unspecified; F32.9 Major depressive disorder, single episode, unspecified; Z86.2 Personal history of diseases of the blood and blood-forming organs and certain disorders involving the immune mechanism; Z88.1 Allergy status to other antibiotic agents; Z88.0 Allergy status to penicillin; Z88.2 Allergy status to sulfonamides; Z79.899 Other long term (current) drug therapy
CPT/HCPCS: 36415; 74018; 76857; 80053; 81001; 85025; 87086; 96361; 96374; 96375; 99284; J1170; J1885; J2405; J2765; J3010; J7030

== ENCOUNTER 2020-06-22 08:24 | Emergency (ER) | payer OTHER, MEDICAID ==
[2020-06-22] MEDS ORDERED: Ketorolac 60 MG/2 ML SDV IM ONE (08:29)
[2020-06-22 08:30] VITALS: BP 137/92; PULSE 89
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
== END 2020-06-22 09:39 | disposition home or self-care (01) ==
LOC: JP.ED 08:24
DX: S16.1XXA Strain of muscle, fascia and tendon at neck level, initial encounter (principal); F32.9 Major depressive disorder, single episode, unspecified; Z88.1 Allergy status to other antibiotic agents; Z88.2 Allergy status to sulfonamides; Z88.0 Allergy status to penicillin; Z79.899 Other long term (current) drug therapy; V89.2XXA Person injured in unspecified motor-vehicle accident, traffic, initial encounter
CPT/HCPCS: 72050; 96372; 99284; J1885; 99283

== ENCOUNTER 2020-10-13 17:39 | Emergency (ER) | payer MEDICAID, OTHER ==
[2020-10-13 17:50] VITALS: BP 145/87; PULSE 77
[2020-10-13] MEDS ORDERED: Ketorolac 30 MG/ML SDV IVPUSH ONE (18:01)
[2020-10-13] MEDS ORDERED: methylPREDNISolone Sodium Succinate 125 MG/2 ML SDV IVPUSH ONE (18:01)
[2020-10-13] MEDS ORDERED: Ondansetron 4 MG/2 ML SDV IVPUSH ONE (18:01)
--- NOTE | 2020-10-13 18:06 | EDM.PDOC ---
ED HPI GENERAL MEDICAL PROBLEM - General Chief Complaint: Headache Stated Complaint: NECK PAIN,MIGRAINE Time Seen by Provider: 10/13/20 17:55 Source of Information: Reports: Patient History Limitations: Reports: No Limitations - History of Present Illness INITIAL COMMENTS - FREE TEXT/NARRATIVE: 35-year-old female with chronic neck pain and recurring migraines saw pain specialist today and had her bowel tox injections earlier this week. She however has a breakthrough episode due to increased tension, with neck pain and migraine for the past 3 to 4 days that are not responding to her typical medications. No fevers or chills, nausea but no vomiting. Photophobic but no other visual changes. No peripheral nerve deficits. No recent trauma. Onset: Gradual Duration: Day(s): (4 days) Location: Reports: Head, Neck Associated Symptoms: Reports: Other (Nausea but no vomiting). Denies: Confusion, Chest Pain, Cough, Fever/Chills, Shortness of Breath Headache Pain Score (Numeric/FACES): 8 - Related Data Allergies Allergy/AdvReac Type Severity Reaction Status Date / Time cephalexin [Cephalexin] Allergy Hives Verified 10/13/20 18:16 erythromycin base Allergy migraine Verified 10/13/20 18:16 [Erythromycin Base] Penicillins Allergy Rash Verified 10/13/20 18:16 Sulfa (Sulfonamide Allergy Rash Verified 10/13/20 18:16 Antibiotics) Home Meds: Home Meds Gabapentin [Neurontin] 1,200 mg PO DAILY 05/29/18 [History] Ibuprofen [Motrin] 600 - 800 mg PO TID PRN 05/29/18 [History] Cetirizine [ZyrTEC] 10 mg PO DAILY 05/31/19 [History] Naproxen 1 tab PO Q6H PRN 05/31/19 [History] Onabotulinumtoxina [Botox] 100 units .XX Q3M 05/31/19 [History] Ergocalciferol (Vitamin D2) [Vitamin D2] 1 tab PO ASDIRECTED 10/13/20 [History] Rizatriptan [Maxalt HOUSING PROJECT MANAGER] 10 mg PO ASDIRECTED 10/13/20 [History] hydrOXYzine HCL [hydrOXYzine] 10 mg PO ASDIRECTED 10/13/20 [History] tiZANidine [Zanaflex] 4 mg PO Q8H PRN 10/13/20 [History] traMADol HCl [Tramadol HCl] 50 mg PO TID 10/13/20 [History] Past Medical History HEENT History: Reports: Allergic Rhinitis, Impaired Vision Other HEENT History: TMJ Cardiovascular History: Reports: None Respiratory History: Reports: None Gastrointestinal History: Reports: None Genitourinary History: Reports: Renal Calculus, UTI, Recurrent, Other (See Below) Other Genitourinary History: ovarian cysts 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: Dysfunctional Uterine Bleeding, Other PLATE MAKER History: ovarian cysts-multiple Musculoskeletal History: Reports: Fibromyalgia Neurological History: Reports: Migraines Psychiatric History: Reports: Anxiety, Depression Endocrine/Metabolic History: Reports: None Hematologic History: Reports: Anemia Immunologic History: Reports: None Oncologic (Cancer) History: Reports: None Dermatologic History: Reports: None - Infectious Disease History Infectious Disease History: Reports: Chicken Pox, Measles - Past Surgical History Head Surgeries/Procedures: Reports: None Cardiovascular Surgical History: Reports: None Respiratory Surgical History: Reports: None GI Surgical History: Reports: Appendectomy, Cholecystectomy Female Surgical History: Reports: Section, Hysterectomy, L ithotripsy/ESWL Oncologic Surgical History: Reports: None Social & Family History - Family History HEENT: Reports: Hearing Impairment Cardiac: Reports: CAD Musculoskeletal: Reports: Arthritis, Fibromyalgia Endocrine/Metabolic: Reports: Diabetes, Type I Oncologic: Reports: Uterine Other Oncologic Family History: grandma. - Caffeine Use Caffeine Use: Reports: Coffee, Soda, Tea - Living Situation & Occupation Living situation: Reports: , with Family ED ROS GENERAL - Review of Systems Review Of Systems: See Below Constitutional: Reports: Malaise. Denies: Fever, Chills HEENT: Reports: Sinus Problem (Think she may be developing some early sinus congestion or "infection".), Other (Photophobia). Denies: Vision Change Respiratory: Reports: No Symptoms Cardiovascular: Reports: No Symptoms GI/Abdominal: Reports: Nausea. Denies: Vomiting Musculoskeletal: Reports: Neck Pain (Chronic and recurring) Neurological: Reports: Headache - Physical Exam Exam: See Below Exam Limited By: No Limitations General Appearance: Alert, No Apparent Distress (Looks uncomfortable but not distressed) Eye Exam: Bilateral Eye: PERRL Head Exam: Atraumatic, Other (Tender to palpation over the occipital and temporalis muscles especially on the left) Neck: Other (Paracervical muscle tenderness to palpation and tightness) Respiratory/Chest: No Respiratory Distress Neuro Exam (Abbreviated): Alert, Oriented, No Motor/Sensory Deficits Psychiatric: Flat Affect Skin Exam: Warm, Dry Course - Vital Signs Last Recorded V/S: Last Vital Signs Temp 98.4 F 10/13/20 18:16 Pulse 77 10/13/20 18:16 Resp 16 10/13/20 18:16 BP 145/87 H 10/13/20 18:16 Pulse Ox 100 10/13/20 18:16 - Orders/Labs/Meds Meds: Medications Discontinued Medications Generic Name Dose Route Start Last Admin Trade Name Juana PRN Reason Stop Dose Admin Ketorolac Tromethamine 30 mg 10/13/20 18:01 10/13/20 18:32 Toradol IVPUSH 10/13/20 18:02 30 mg ONETIME ONE Administration Methylprednisolone Sodium Succinate 125 mg 10/13/20 18:01 10/13/20 18:33 Solu-Medrol IVPUSH 10/13/20 18:02 125 mg ONETIME ONE Administration Ondansetron HCl 4 mg 10/13/20 18:01 10/13/20 18:32 Zofran IVPUSH 10/13/20 18:02 4 mg ONETIME ONE Administration - Re-Assessments/Exams Free Text/Narrative Re-Assessment/Exam: 10/13/20 18:07 An IV will be placed and the patient will be given 125 mg of IV Solu-Medrol, 30 mg of IV Toradol and 4 mg of IV Zofran. 10/13/20 18:47 After 30 minutes patient really did not appear to look much better but in reviewing her history she tends to have very chronic and intractable pain issues. She can recheck tomorrow if not improving satisfactorily. 10/13/20 18:56 Prior to discharge the patient asked for some take home doses of Toradol so was given 10 doses of 10 mg pills to take up to 4 times daily. Departure - Departure Time of Disposition: 19:06 Disposition: Home, Self-Care 01 Clinical Impression: Migraine, Neck pain - Discharge Information Instructions: Migraine Headache Referrals: PCP,None [Primary Care Provider] - Forms: ED Department Discharge Care Plan Goals: Try to rest tonight, increase activity as tolerated and continue your regular medications. Return in the next 24 to 48 hours if not improving satisfactorily, or anytime if worsening despite treatment. Sepsis Event Note (ED) - Focused Exam Vital Signs: Vital Signs Temp Pulse Resp BP Pulse Ox 10/13/20 18:16 98.4 F 77 16 145/87 H 100 10/13/20 17:48 98.4 F 77 16 145/87 H 100
== END 2020-10-13 19:07 | disposition home or self-care (01) ==
LOC: JP.ED 17:39
DX: M54.2 Cervicalgia (principal); G43.909 Migraine, unspecified, not intractable, without status migrainosus; Z88.1 Allergy status to other antibiotic agents; Z88.0 Allergy status to penicillin; Z88.2 Allergy status to sulfonamides; Z79.899 Other long term (current) drug therapy
CPT/HCPCS: 96374; 96375; 99283; J1885; J2405; J2930

== ENCOUNTER 2021-02-28 21:25 | Emergency (ER) | payer OTHER, MEDICAID ==
[2021-02-28 21:50] VITALS: BP 148/80; PULSE 73
[2021-02-28] MEDS ORDERED: Lidocaine 5% 700 MG Patch TOP ONE (22:04)
--- NOTE | 2021-02-28 22:04 | EDM.PDOC ---
ED HPI GENERAL MEDICAL PROBLEM - General Chief Complaint: Back Pain or Injury Stated Complaint: BACK PAIN Time Seen by Provider: 02/28/21 21:50 Source of Information: Reports: Patient History Limitations: Reports: No Limitations - History of Present Illness INITIAL COMMENTS - FREE TEXT/NARRATIVE: Maria Isabel is a 36-year-old female presenting to the ED for evaluation of acute onset of low back pain. Patient states that she did not do anything strenuous on Saturday but when she woke up on Saturday she was having significant low back pain radiating to the right side. She continued to kind of relax on Saturday and Saturday it had worsened. Had been taking her baclofen and ibuprofen without any relief and finally comes in today after trying everything that she could think of including blue emu oil, icing, heat, hot bath, gentle stretching and even increasing her ibuprofen and baclofen. The patient denies any saddle anesthesia, loss of bowel or bladder control, or pain going down either of the legs. The pain is predominantly on the right side radiating to the iliac crest and comes around to the inguinal fold. Initially she thought that maybe she had a ovarian cyst, however, they have never been this severe. Fever, chills, nausea or vomiting, diarrhea or constipation, urinary symptoms including urgency, frequency, or burning with urination. lower back pain Pain Score (Numeric/FACES): 8 - Related Data Allergies Allergy/AdvReac Type Severity Reaction Status Date / Time cephalexin [Cephalexin] Allergy Hives Verified 02/28/21 21:43 erythromycin base Allergy migraine Verified 02/28/21 21:43 [Erythromycin Base] Penicillins Allergy Rash Verified 02/28/21 21:43 Sulfa (Sulfonamide Allergy Rash Verified 02/28/21 21:43 Antibiotics) Home Meds: Home Meds Gabapentin [Neurontin] 1,200 mg PO DAILY 05/29/18 [History] Ibuprofen [Motrin] 600 - 800 mg PO TID PRN 05/29/18 [History] Cetirizine [ZyrTEC] 10 mg PO DAILY 05/31/19 [History] Naproxen 1 tab PO Q6H PRN 05/31/19 [History] Onabotulinumtoxina [Botox] 100 units .XX Q3M 05/31/19 [History] Ergocalciferol (Vitamin D2) [Vitamin D2] 1 tab PO ASDIRECTED 10/13/20 [History] Rizatriptan [Maxalt TELEVISION MAINTENANCE WORKER] 10 mg PO ASDIRECTED 10/13/20 [History] hydrOXYzine HCL [hydrOXYzine] 10 mg PO ASDIRECTED 10/13/20 [History] Baclofen 20 mg PO TID PRN 02/28/21 [History] methocarbamoL [Methocarbamol] 750 mg PO QID PRN #40 tablet 02/28/21 [Rx] Past Medical History HEENT History: Reports: Allergic Rhinitis, Impaired Vision Other HEENT History: TMJ Cardiovascular History: Reports: None Respiratory History: Reports: None Gastrointestinal History: Reports: None Genitourinary History: Reports: Renal Calculus, UTI, Recurrent, Other (See Below) Other Genitourinary History: ovarian cysts 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: Dysfunctional Uterine Bleeding, Other GROVE SUPERINTENDENT History: ovarian cysts-multiple Musculoskeletal History: Reports: Fibromyalgia Neurological History: Reports: Migraines Psychiatric History: Reports: Anxiety, Depression Endocrine/Metabolic History: Reports: None Hematologic History: Reports: Anemia Immunologic History: Reports: None Oncologic (Cancer) History: Reports: None Dermatologic History: Reports: None - Infectious Disease History Infectious Disease History: Reports: Chicken Pox, Measles - Past Surgical History Head Surgeries/Procedures: Reports: None GI Surgical History: Reports: Appendectomy, Cholecystectomy Female Surgical History: Reports: Section, Hysterectomy, Lithotripsy/ESWL Other Female Surgeries/Procedures: kidney stones removed with scope, nephrostomy tube with 2014, fallopian tubes removed. Endocrine Surgical History: Reports: None Oncologic Surgical History: Reports: Lumpectomy, Other (See Below) Other Oncologic Surgeries/Procedures: lumpectomy of right breast Social & Family History - Family History HEENT: Reports: Hearing Impairment Cardiac: Reports: CAD Musculoskeletal: Reports: Arthritis, Fibromyalgia Endocrine/Metabolic: Reports: Diabetes, Type I Oncologic: Reports: Uterine Other Oncologic Family History: grandma. - Tobacco Use Tobacco Use Status *Q: Never Tobacco User - Caffeine Use Caffeine Use: Reports: None - Recreational Drug Use Recreational Drug Use: No - Living Situation & Occupation Living situation: Reports: , with Family ED ROS GENERAL - Review of Systems Review Of Systems: See Below Constitutional: Reports: No Symptoms HEENT: Reports: No Symptoms Respiratory: Reports: No Symptoms Cardiovascular: Reports: No Symptoms Endocrine: Reports: No Symptoms GI/Abdominal: Reports: No Symptoms : Reports: No Symptoms Musculoskeletal: Reports: Back Pain Skin: Reports: No Symptoms Neurological: Reports: No Symptoms Psychiatric: Reports: No Symptoms Hematologic/Lymphatic: Reports: No Symptoms Immunologic: Reports: No Symptoms ED EXAM,LOWER BACK PAIN/INJURY - Physical Exam Exam: See Below Exam Limited By: No Limitations General Appearance: Alert, Mild Distress Eye Exam: Bilateral Eye: EOMI, PERRL Head: Atraumatic, Normocephalic Neck: Normal Inspection, Supple Respiratory/Chest: No Respiratory Distress Cardiovascular: Normal Peripheral Pulses, Regular Rate, Rhythm, No Murmur GI/Abdominal: Normal Bowel Sounds, Soft, Non-Tender Back Exam: Muscle Spasm (Right paraspinal lumbar region), Paraspinal Tenderness (Lumbar region right side). No: Vertebral Tenderness Extremities: Normal Inspection, Normal Range of Motion Neurological: Alert, Normal Mood/Affect, Normal Dorsiflexion, CN II-XII Intact, Normal Plantar Flexion, Normal Gait, Normal Reflexes, No Motor/Sensory Deficits, Oriented x 3 Psychiatric: Normal Affect, Normal Mood Skin Exam: Warm, Dry Lymphatic: No Adenopathy Course - Vital Signs Last Recorded V/S: Last Vital Signs Temp 36.3 C 02/28/21 21:42 Pulse 73 02/28/21 21:42 Resp 20 02/28/21 21:42 BP 148/80 H 02/28/21 21:42 Pulse Ox 97 02/28/21 21:42 - Orders/Labs/Meds Meds: Medications Discontinued Medications Generic Name Dose Route Start Last Admin Trade Name Juana PRN Reason Stop Dose Admin Lidocaine 700 mg 02/28/21 22:04 02/28/21 22:17 Lidocaine 5% 700 Mg Patch TOP 02/28/21 22:05 700 mg ONETIME ONE Administration - Radiology Interpretation Free Text/Narrative:: I reviewed the report of the x-ray of the lumbar spine showing degenerative disc disease worse at L4-L5 and L5-S1 without any acute abnormalities. - Re-Assessments/Exams Free Text/Narrative Re-Assessment/Exam: 02/28/21 23:23 the patient has significant paraspinal muscle spasm consistent with a lumbar strain. X-rays of her lumbar spine show degenerative disc disease at L4-L5 and L5-S1 that are not acute. My plan is to put the patient on methocarbamol 750 mg 4 times daily as needed for muscle spasm and have her discontinue the baclofen while she is on the methocarbamol. She was given a dose of hydrocodone here for pain control as well as a Lidoderm patch to get her through the night. She may continue taking her ibuprofen as before. Ice is encouraged. Activity as tolerated. Departure - Departure Time of Disposition: 23:25 Disposition: Home, Self-Care 01 Clinical Impression: Acute lumbosacral myofascial strain Qualifiers: Encounter type: initial encounter Qualified Code(s): S39.012A - Strain of muscle, fascia and tendon of lower back, initial encounter - Discharge Information Instructions: Lumbar Strain Referrals: PCP,None [Primary Care Provider] - Forms: ED Department Discharge Care Plan Goals: I am starting you on a new medication called methocarbamol 750 mg. You may take 1 tablet every 6 hours as needed for muscle spasm. Please discontinue the use of baclofen when taking the methocarbamol as they do not play nice together. We are giving you a single dose of hydrocodone to get you through the night as far as pain control. You may also crab picker Salonpas 4% Lidoderm patches to apply over the area once daily. Please keep the current patch in place until morning. These have been shown to be effective at controlling back pain. You may restart your ibuprofen as before. Continue to ice 15 to 20 minutes every couple hours that you are awake. Sepsis Event Note (ED) - Evaluation Sepsis Screening Result: No Definite Risk - Focused Exam Vital Signs: Vital Signs Temp Pulse Resp BP Pulse Ox 02/28/21 21:42 36.3 C 73 20 148/80 H 97 02/28/21 21:41 36.3 C 73 20 148/80 H 97 - Problem List & Annotations (1) Acute lumbosacral myofascial strain SNOMED Code(s): 318931164, 47600656, 788396371 Code(s): S39.012A - STRAIN OF MUSCLE, FASCIA AND TENDON OF LOWER BACK, INIT Status: Acute Priority: Medium Current Visit: Yes Qualifiers: Encounter type: initial encounter Qualified Code(s): S39.012A - Strain of muscle, fascia and tendon of lower back, initial encounter - Problem List Review Problem List Initiated/Reviewed/Updated: Yes
--- NOTE | 2021-02-28 23:02 | CRLCR ---
For Patients: As a result of the Century Cures Act, medical imaging exams and procedure reports are released immediately into your electronic medical record. You may view this report before your referring provider. If you have questions, please contact your health care provider. INDICATION: Back pain TECHNIQUE: Lumbar spine 3 view COMPARISON: None FINDINGS: Bones: Alignment is normal. No fractures or significant bone lesions. Joints: Disc spaces narrowing, most severe at L4-5 and L5-S1 Soft tissues: Unremarkable. IMPRESSION: Degenerative disc disease no acute fracture visible. Dictated by Damien Ren MD @ 02/28/2021 11:00:[address] Damien Ren @ Feb 28 2021 11:00PM
[2021-02-28] MEDS ORDERED: Acetaminophen/HYDROcodone 325-5 MG Tab PO ONE (23:24)
== END 2021-02-28 23:45 | disposition home or self-care (01) ==
LOC: JP.ED 21:25
DX: S39.012A Strain of muscle, fascia and tendon of lower back, initial encounter (principal); Z88.1 Allergy status to other antibiotic agents; Z88.0 Allergy status to penicillin; Z88.2 Allergy status to sulfonamides; Z68.27 Body mass index [BMI] 27.0-27.9, adult; X58.XXXA Exposure to other specified factors, initial encounter
CPT/HCPCS: 72100; 99283; A9270

== ENCOUNTER 2021-05-24 09:26 | Emergency (ER) | payer MEDICAID, OTHER ==
[2021-05-24 10:13] VITALS: BP 120/77; PULSE 76
[2021-05-24] MEDS ORDERED: methylPREDNISolone Sodium Succinate 125 MG/2 ML SDV IVPUSH ONE (10:27)
--- NOTE | 2021-05-24 10:34 | EDM.PDOC ---
ED HPI GENERAL MEDICAL PROBLEM - General Chief Complaint: Headache Stated Complaint: JAW & NECK PAIN Time Seen by Provider: 05/24/21 10:10 Source of Information: Reports: Patient History Limitations: Reports: No Limitations - History of Present Illness INITIAL COMMENTS - FREE TEXT/NARRATIVE: 36-year-old female with chronic musculoskeletal pain of her back and neck, recurring chronic migraine type headaches presents with persistent upper back and neck pain with pain radiating to the left side of her head and both jaws. She is on full dose gabapentin which gives her some benefit. She is scheduled for Botox injections in a week with her neurologist. No recent trauma, no fevers or chills, no visual complaints. I saw her with similar symptoms 8 months ago when she responded well to steroids and Toradol. She is already on anti-inflammatories currently. Onset: Unknown/Unsure Duration: Chronic Location: Reports: Head, Neck, Back Associated Symptoms: Reports: Malaise, Other (Not sleeping well). Denies: Confusion, Chest Pain, Loss of Appetite head neck jaw Pain Score (Numeric/FACES): 7 - Related Data Allergies Allergy/AdvReac Type Severity Reaction Status Date / Time cephalexin [Cephalexin] Allergy Hives Verified 05/24/21 10:07 erythromycin base Allergy migraine Verified 05/24/21 10:07 [Erythromycin Base] Penicillins Allergy Rash Verified 05/24/21 10:07 Sulfa (Sulfonamide Allergy Rash Verified 05/24/21 10:07 Antibiotics) Home Meds: Home Meds Gabapentin [Neurontin] 1,200 mg PO DAILY 05/29/18 [History] Ibuprofen [Motrin] 600 - 800 mg PO TID PRN 05/29/18 [History] Cetirizine [ZyrTEC] 10 mg PO DAILY 05/31/19 [History] Naproxen 1 tab PO Q6H PRN 05/31/19 [History] Onabotulinumtoxina [Botox] 100 units .XX Q3M 05/31/19 [History] Ergocalciferol (Vitamin D2) [Vitamin D2] 1 tab PO ASDIRECTED 10/13/20 [History] Rizatriptan [Maxalt BUILDING ESTIMATOR] 10 mg PO ASDIRECTED 10/13/20 [History] hydrOXYzine HCL [hydrOXYzine] 10 mg PO ASDIRECTED 10/13/20 [History] Baclofen 20 mg PO TID PRN 02/28/21 [History] methocarbamoL [Methocarbamol] 750 mg PO QID PRN #40 tablet 02/28/21 [Rx] Past Medical History HEENT History: Reports: Allergic Rhinitis, Impaired Vision Other HEENT History: TMJ Cardiovascular History: Reports: None Respiratory History: Reports: None Gastrointestinal History: Reports: None Genitourinary History: Reports: Renal Calculus, UTI, Recurrent, Other (See Below) Other Genitourinary History: ovarian cysts 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: Dysfunctional Uterine Bleeding, Other PRECISION THREAD GRINDER OPERATOR History: ovarian cysts-multiple Musculoskeletal History: Reports: Fibromyalgia Neurological History: Reports: Migraines Psychiatric History: Reports: Anxiety, Depression Endocrine/Metabolic History: Reports: None Hematologic History: Reports: Anemia Immunologic History: Reports: None Oncologic (Cancer) History: Reports: None Dermatologic History: Reports: None - Infectious Disease History Infectious Disease History: Reports: Chicken Pox, Measles - Past Surgical History Head Surgeries/Procedures: Reports: None HEENT Surgical History: Reports: None Cardiovascular Surgical History: Reports: None Respiratory Surgical History: Reports: None GI Surgical History: Reports: Appendectomy, Cholecystectomy Female Surgical History: Reports: Section, Hysterectomy, Lithotripsy/ESWL Other Female Surgeries/Procedures: kidney stones removed with scope, nephrostomy tube with 2014, fallopian tubes removed. Endocrine Surgical History: Reports: None Neurological Surgical History: Reports: None Musculoskeletal Surgical History: Reports: None Oncologic Surgical History: Reports: Lumpectomy, Other (See Below) Other Oncologic Surgeries/Procedures: lumpectomy of right breast Dermatological Surgical History: Reports: None Social & Family History - Family History HEENT: Reports: Hearing Impairment Cardiac: Reports: CAD Musculoskeletal: Reports: Arthritis, Fibromyalgia Endocrine/Metabolic: Reports: Diabetes, Type I Oncologic: Reports: Uterine Other Oncologic Family History: grandma. - Tobacco Use Tobacco Use Status *Q: Never Tobacco User Second Hand Smoke Exposure: No - Caffeine Use Caffeine Use: Reports: Tea - Recreational Drug Use Recreational Drug Use: No - Living Situation & Occupation Living situation: Reports: , with Family ED ROS GENERAL - Review of Systems Review Of Systems: See Below Constitutional: Reports: Malaise. Denies: Fever, Chills HEENT: Denies: Vision Change Respiratory: Denies: Shortness of Breath Cardiovascular: Denies: Chest Pain GI/Abdominal: Denies: Nausea, Vomiting Musculoskeletal: Reports: Neck Pain, Shoulder Pain, Back Pain Skin: Denies: Rash Neurological: Reports: Headache - Physical Exam Exam: See Below Exam Limited By: No Limitations General Appearance: Alert, No Apparent Distress Eye Exam: Bilateral Eye: Normal Inspection Head Exam: Atraumatic, Other (Some tenderness to palpation of the temporalis and occipital muscles, especially on the left side) Neck: Other (Paracervical muscles are sore especially in the proximal muscles near the insertion to the skull) Respiratory/Chest: No Respiratory Distress Cardiovascular: Regular Rate, Rhythm Neuro Exam (Abbreviated): Alert, Oriented, No Motor/Sensory Deficits Skin Exam: Warm, Dry, No Rash Course - Vital Signs Last Recorded V/S: Last Vital Signs Temp 97.5 F 05/24/21 10:37 Pulse 76 05/24/21 10:37 Resp 18 05/24/21 10:37 BP 120/77 05/24/21 10:37 Pulse Ox 100 05/24/21 10:37 - Orders/Labs/Meds Meds: Medications Discontinued Medications Generic Name Dose Route Start Last Admin Trade Name Juana PRN Reason Stop Dose Admin Methylprednisolone Sodium Succinate 125 mg 05/24/21 10:27 05/24/21 10:34 Methylprednisolone Sodium Succinate 125 Mg/2 Ml Sdv IVPUSH 05/24/21 10:28 125 mg ONETIME ONE Administration - Re-Assessments/Exams Free Text/Narrative Re-Assessment/Exam: 05/24/21 10:32 This patient has an exacerbation of chronic myofascial muscle pain. I reviewed her records and this has been an ongoing recurring issue for years. She was given 125 mg of IV Solu-Medrol, which will be followed by a Medrol Dosepak starting tomorrow. Also given 15 tramadol to take sparingly and she will recheck with her neurologist next week as scheduled. Departure - Departure Time of Disposition: 10:38 Disposition: Home, Self-Care 01 Clinical Impression: Chronic myofascial pain - Discharge Information Instructions: Chronic Pain, Adult Referrals: PCP,None [Primary Care Provider] - Forms: ED Department Discharge Care Plan Goals: Continue your current medications, take the Medrol Dosepak as directed starting tomorrow and use tramadol sparingly as needed for extra pain control. Recheck with your neurologist next week as scheduled. Sepsis Event Note (ED) - Focused Exam Vital Signs: Vital Signs Temp Pulse Resp BP Pulse Ox 05/24/21 10:37 97.5 F 76 18 120/77 100 05/24/21 10:07 97.5 F 76 18 120/77 100
== END 2021-05-24 10:43 | disposition home or self-care (01) ==
LOC: JP.ED 09:26
DX: R51.9 Headache, unspecified (principal); M54.2 Cervicalgia; G89.29 Other chronic pain; Z88.1 Allergy status to other antibiotic agents; Z88.0 Allergy status to penicillin; Z88.2 Allergy status to sulfonamides
CPT/HCPCS: 96374; 99283; J2930

== ENCOUNTER 2021-07-20 21:16 | Emergency (ER) | payer OTHER, MEDICAID ==
[2021-07-20 21:37] VITALS: BP 142/72; PULSE 77
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
== END 2021-07-20 22:55 | disposition home or self-care (01) ==
LOC: JP.ED 21:16
DX: M54.2 Cervicalgia (principal); M79.18 Myalgia, other site; Z88.1 Allergy status to other antibiotic agents; Z88.0 Allergy status to penicillin; Z88.2 Allergy status to sulfonamides
CPT/HCPCS: 99283

== ENCOUNTER 2021-11-20 20:26 | Emergency (ER) | payer OTHER, MEDICAID ==
[2021-11-20 21:12] VITALS: BP 128/81; PULSE 86
[2021-11-20] MEDS ORDERED: methylPREDNISolone Sodium Succinate 125 MG/2 ML SDV IM ONE (21:19)
== END 2021-11-20 21:35 | disposition home or self-care (01) ==
LOC: JP.ED 20:26
DX: M47.22 Other spondylosis with radiculopathy, cervical region (principal); M62.838 Other muscle spasm; Z88.0 Allergy status to penicillin; Z88.2 Allergy status to sulfonamides; Z88.1 Allergy status to other antibiotic agents; Z72.0 Tobacco use
CPT/HCPCS: 96372; 99282; 99283; J2930

== ENCOUNTER 2021-12-17 16:44 | Emergency (ER) | payer OTHER, MEDICAID ==
[2021-12-17] MEDS ORDERED: Albuterol/Ipratropium 3.0-0.5 MG/3 ML Neb Soln NEB ONE (17:22)
[2021-12-17 17:50] LABS: CORONAVIRUS COVID-19 NAA NEGATIVE (NEGATIVE)
[2021-12-17 18:07] VITALS: BP 125/70; PULSE 103
== END 2021-12-17 18:46 | disposition home or self-care (01) ==
LOC: JP.ED 16:44
DX: J18.9 Pneumonia, unspecified organism (principal); J45.20 Mild intermittent asthma, uncomplicated; F41.9 Anxiety disorder, unspecified; Z88.0 Allergy status to penicillin; Z88.1 Allergy status to other antibiotic agents; Z88.2 Allergy status to sulfonamides; Z72.0 Tobacco use; Z20.822 Contact with and (suspected) exposure to COVID-19
CPT/HCPCS: 0241U; 71046; 94640; 99283; 99285; J7620

== ENCOUNTER 2022-02-13 21:58 | Emergency (ER) | payer OTHER, MEDICAID ==
[2022-02-13 22:58] VITALS: BP 147/93; PULSE 94
[2022-02-13] MEDS ORDERED: Ketorolac 30 MG/ML SDV IM ONE (23:06)
[2022-02-13] MEDS ORDERED: Tamsulosin 0.4 MG Cap.ER PO ONE (23:06)
== END 2022-02-14 00:34 | disposition home or self-care (01) ==
LOC: JP.ED 21:58
DX: R10.83 Colic (principal); N20.1 Calculus of ureter; N39.0 Urinary tract infection, site not specified; F17.210 Nicotine dependence, cigarettes, uncomplicated; Z86.16 Personal history of COVID-19; Z90.49 Acquired absence of other specified parts of digestive tract; Z79.899 Other long term (current) drug therapy; Z88.1 Allergy status to other antibiotic agents; Z88.2 Allergy status to sulfonamides
CPT/HCPCS: 74176; 81001; 87086; 96372; 99283; 99284-25; A9270-GY; J1885

== ENCOUNTER 2022-03-29 21:43 | Emergency (ER) | payer OTHER, MEDICAID ==
[2022-03-29 21:58] VITALS: BP 126/74; PULSE 70
[2022-03-29] MEDS ORDERED: Levofloxacin/Dextrose 5%-Water 750 MG in Premix Bag 1 BAG IV ONE (22:56)
[2022-03-29] MEDS ORDERED: Sodium Chloride 0.9% 1,000 ML IV SCH (23:00)
[2022-03-29 23:11] LABS: ESTIMATED GFR 97 mL/min (>60)
[2022-03-30] MEDS ORDERED: Ketorolac 30 MG/ML SDV IVPUSH ONE (00:01)
== END 2022-03-30 00:51 | disposition home or self-care (01) ==
LOC: JP.ED 21:43
DX: N20.0 Calculus of kidney (principal); E86.0 Dehydration; F17.210 Nicotine dependence, cigarettes, uncomplicated; Z88.1 Allergy status to other antibiotic agents; Z88.2 Allergy status to sulfonamides; Z86.16 Personal history of COVID-19; Z87.442 Personal history of urinary calculi
CPT/HCPCS: 36415; 80053; 81001; 85025; 87086; 96365; 96375; 99282; 99284-25; J1885; J1956

== ENCOUNTER 2022-03-31 22:04 | Emergency (ER) | payer OTHER, MEDICAID ==
[2022-03-31 22:24] VITALS: BP 153/90; PULSE 89
[2022-03-31] MEDS ORDERED: HYDROmorphone 0.5 MG/0.5 ML Syringe IVPUSH ONE (22:56)
[2022-03-31] MEDS ORDERED: Sodium Chloride 0.9% 1,000 ML IV SCH (23:00)
[2022-04-01] MEDS ORDERED: HYDROmorphone 1 MG/ML Syringe IVPUSH ONE (00:13)
[2022-04-01 00:49] LABS: ESTIMATED GFR 97 mL/min (>60)
== END 2022-04-01 01:16 | disposition home or self-care (01) ==
LOC: JP.ED 22:04
DX: R10.9 Unspecified abdominal pain (principal); F17.210 Nicotine dependence, cigarettes, uncomplicated; Z88.1 Allergy status to other antibiotic agents; Z88.0 Allergy status to penicillin; Z88.2 Allergy status to sulfonamides; Z86.16 Personal history of COVID-19; Z96.0 Presence of urogenital implants
CPT/HCPCS: 36415; 74176; 80053; 81001; 85025; 96361; 96374; 96376; 99284; J1170; J7030

== ENCOUNTER 2023-09-08 17:21 | Emergency (ER) | payer MEDICAID, OTHER ==
[2023-09-08 17:53] VITALS: BP 134/77; PULSE 93
[2023-09-08 18:44] LABS: BASOPHILS PERCENT AUTO 0.3 % (0.1-1.3); HEMATOCRIT 37.3 % (34.3-46.0); HEMOGLOBIN 13.2 g/dL (11.2-15.5); IMMATURE GRAN PERCENT AUTO 0.1 % (0.0-0.7); LYMPHOCYTES ABSOLUTE AUTO 1.23 K/uL (0.8-3.3); LYMPHOCYTES PERCENT AUTO 16.3 % (11.4-47.7); MEAN CORPUSCULAR HEMOGLOBIN 30.6 pg (31.6-35.5); MEAN CORPUSCULAR HGB CONC 35.4 g/dL (31.6-35.5); MEAN CORPUSCULAR VOLUME 86.5 fL (81.4-99.0); MONOCYTES ABSOLUTE AUTO 0.19 K/uL (0.20-0.90); MONOCYTES PERCENT AUTO 2.5 % (3.3-12.6); NEUTROPHILS PERCENT AUTO 80.8 % (40.0-78.1); PLATELET COUNT,PLT 233 K/uL (130-375); RED BLOOD CELL COUNT 4.31 M/uL (3.77-5.24); WHITE BLOOD CELL COUNT,WBC 7.6 K/uL (3.2-11.0)
[2023-09-08 18:49] LABS: BASOPHILS ABSOLUTE AUTO 0.02 K/uL (0.00-0.10); IMMATURE GRAN ABSOLUTE AUTO 0.01 K/uL (0.00-0.23)
[2023-09-08 19:09] LABS: CALCIUM 8.7 mg/dL (8.5-10.1); CREATININE 0.8 mg/dL (0.6-1.0); EST CRCL DRUG DOSING (CG) 78.1 mL/min; POTASSIUM,K 4.6 mmol/L (3.6-5.2); TROPONIN I HIGH SENSITIVITY 4.3 pg/mL (<=60.3)
[2023-09-08 19:10] LABS: ANION GAP 13.6 mmol/L (5.0-14.0)
== END 2023-09-08 19:57 | disposition home or self-care (01) ==
LOC: JP.ED 17:21
DX: S46.911A Strain of unspecified muscle, fascia and tendon at shoulder and upper arm level, right arm, initial encounter (principal); F17.210 Nicotine dependence, cigarettes, uncomplicated; Z86.16 Personal history of COVID-19; Z88.0 Allergy status to penicillin; Z88.1 Allergy status to other antibiotic agents; Z88.2 Allergy status to sulfonamides; Z90.49 Acquired absence of other specified parts of digestive tract; Z90.710 Acquired absence of both cervix and uterus; X50.1XXA Overexertion from prolonged static or awkward postures, initial encounter
CPT/HCPCS: 36415; 71045; 71045-26; 80048; 84484; 85025; 93005; 99284

== ENCOUNTER 2023-09-14 21:12 | Emergency (ER) | payer MEDICAID ==
[2023-09-14 21:21] VITALS: PULSE 111
[2023-09-14 21:35] VITALS: BP 164/85
== END 2023-09-14 22:15 | disposition home or self-care (01) ==
LOC: JP.ED 21:12
DX: R20.2 Paresthesia of skin (principal); Z88.0 Allergy status to penicillin; Z88.2 Allergy status to sulfonamides; Z88.8 Allergy status to other drugs, medicaments and biological substances; Z79.899 Other long term (current) drug therapy; Z90.49 Acquired absence of other specified parts of digestive tract; Z90.710 Acquired absence of both cervix and uterus; Z86.16 Personal history of COVID-19
CPT/HCPCS: 99283

== ENCOUNTER 2024-01-18 16:27 | Emergency (ER) | payer MEDICAID ==
[2024-01-18 17:04] VITALS: BP 153/81; PULSE 93
[2024-01-18 18:51] LABS: APPEARANCE,URINE SLIGHTLY CLOUDY (CLEAR); BILIRUBIN,URINE SMALL (NEGATIVE); COLOR,URINE ORANGE (YELLOW); GLUCOSE,URINE 100 mg/dL (NEGATIVE); KETONES,URINE NEGATIVE (NEGATIVE); LEUKOCYTE ESTERASE,URINE LARGE (NEGATIVE); NITRITE,URINE POSITIVE (NEGATIVE); OCCULT BLOOD,URINE TRACE-INTACT (NEGATIVE); PROTEIN,URINE 100 mg/dL (NEGATIVE)
[2024-01-18 19:01] LABS: EPITHELIAL CELLS,URINE FEW; RBC,URINE 0-5 (0-5)
[2024-01-18 19:02] LABS: AMORPHOUS SEDIMENT,URINE RARE; BACTERIA,URINE MODERATE; MUCUS,URINE NOT SEEN
[2024-01-18] MEDS: Ketorolac 10 MG Tab PO ONE (19:50)
[2024-01-18] MEDS: Nitrofurantoin Monohydrate/Macrocrystalline 100 MG Cap PO ONE (19:51)
== END 2024-01-18 20:48 | disposition home or self-care (01) ==
LOC: JP.ED 16:27
DX: N13.2 Hydronephrosis with renal and ureteral calculous obstruction (principal); N30.01 Acute cystitis with hematuria; Z88.1 Allergy status to other antibiotic agents; Z88.0 Allergy status to penicillin; Z88.2 Allergy status to sulfonamides; Z86.16 Personal history of COVID-19; Z90.710 Acquired absence of both cervix and uterus; Z79.899 Other long term (current) drug therapy
CPT/HCPCS: 74176; 81001; 87086; 99284; A9270

== ENCOUNTER 2024-07-06 13:11 | Emergency (ER) | payer MEDICAID ==
[2024-07-06 13:30] VITALS: BP 126/81; PULSE 96
[2024-07-06] MEDS ORDERED: Sodium Chloride 0.9% 10 ML Syringe FLUSH PRN (14:18)
[2024-07-06] MEDS ORDERED: HYDROmorphone 0.5 MG/0.5 ML Syringe IVPUSH ONE (14:19)
[2024-07-06 14:36] LABS: BASOPHILS ABSOLUTE AUTO 0.08 K/uL (0.00-0.10); EOSINOPHILS PERCENT AUTO 6.1 % (0.0-5.4); HEMATOCRIT 38.3 % (34.3-46.0); HEMOGLOBIN 13.7 g/dL (11.2-15.5); IMMATURE GRAN PERCENT AUTO 0.2 % (0.0-0.7); LYMPHOCYTES ABSOLUTE AUTO 2.23 K/uL (0.8-3.3); LYMPHOCYTES PERCENT AUTO 27.2 % (11.4-47.7); MEAN CORPUSCULAR HEMOGLOBIN 30.9 pg (31.6-35.5); MEAN CORPUSCULAR HGB CONC 35.8 g/dL (31.6-35.5); MEAN CORPUSCULAR VOLUME 86.3 fL (81.4-99.0); MONOCYTES ABSOLUTE AUTO 0.46 K/uL (0.20-0.90); MONOCYTES PERCENT AUTO 5.6 % (3.3-12.6); NEUTROPHILS ABSOLUTE AUTO 4.92 K/uL (1.0-7.6); NEUTROPHILS PERCENT AUTO 59.9 % (40.0-78.1); PLATELET COUNT,PLT 269 K/uL (130-375); RED BLOOD CELL COUNT 4.44 M/uL (3.77-5.24); WHITE BLOOD CELL COUNT,WBC 8.2 K/uL (3.2-11.0)
[2024-07-06 14:37] LABS: IMMATURE GRAN ABSOLUTE AUTO 0.02 K/uL (0.00-0.23)
[2024-07-06 14:52] LABS: ANION GAP 10.3 mmol/L (5.0-14.0); CALCIUM 9.1 mg/dL (8.5-10.1); CREATININE 0.9 mg/dL (0.6-1.0); EST CRCL DRUG DOSING (CG) 74.77 mL/min; POTASSIUM,K 3.9 mmol/L (3.6-5.2)
[2024-07-06] MEDS: Iopamidol 612 MG/ML 100 ML Bottle IV ONE (15:06)
[2024-07-06] MEDS: Sodium Chloride 0.9% 80 ML IV SCH (15:07)
== END 2024-07-06 16:32 | disposition home or self-care (01) ==
LOC: JP.ED 13:11
DX: K04.7 Periapical abscess without sinus (principal); F17.210 Nicotine dependence, cigarettes, uncomplicated; Z86.16 Personal history of COVID-19; Z90.49 Acquired absence of other specified parts of digestive tract; Z90.710 Acquired absence of both cervix and uterus; Z79.899 Other long term (current) drug therapy; Z88.1 Allergy status to other antibiotic agents; Z88.0 Allergy status to penicillin; Z88.2 Allergy status to sulfonamides
CPT/HCPCS: 36415; 70487; 70487-26; 80048; 83605; 85025; 99284; J3490; Q9967

== ENCOUNTER 2024-07-11 21:11 | Emergency (ER) | payer MEDICAID ==
[2024-07-11 22:14] VITALS: PULSE 79
[2024-07-11] MEDS: HYDROmorphone 0.5 MG/0.5 ML Syringe IM ONE (22:44)
[2024-07-11] MEDS: Ondansetron 4 MG Tab.DIS PO ONE (22:44)
[2024-07-11 22:55] LABS: BASOPHILS ABSOLUTE AUTO 0.07 K/uL (0.00-0.10); BASOPHILS PERCENT AUTO 0.8 % (0.1-1.3); EOSINOPHILS ABSOLUTE AUTO 0.44 K/uL (0.00-0.40); HEMATOCRIT 35.9 % (34.3-46.0); HEMOGLOBIN 12.5 g/dL (11.2-15.5); IMMATURE GRAN PERCENT AUTO 0.2 % (0.0-0.7); LYMPHOCYTES ABSOLUTE AUTO 2.17 K/uL (0.8-3.3); LYMPHOCYTES PERCENT AUTO 24.5 % (11.4-47.7); MEAN CORPUSCULAR HEMOGLOBIN 30.8 pg (31.6-35.5); MEAN CORPUSCULAR HGB CONC 34.8 g/dL (31.6-35.5); MEAN CORPUSCULAR VOLUME 88.4 fL (81.4-99.0); MONOCYTES ABSOLUTE AUTO 0.61 K/uL (0.20-0.90); MONOCYTES PERCENT AUTO 6.9 % (3.3-12.6); NEUTROPHILS ABSOLUTE AUTO 5.54 K/uL (1.0-7.6); NEUTROPHILS PERCENT AUTO 62.6 % (40.0-78.1); PLATELET COUNT,PLT 240 K/uL (130-375); RED BLOOD CELL COUNT 4.06 M/uL (3.77-5.24); WHITE BLOOD CELL COUNT,WBC 8.9 K/uL (3.2-11.0)
[2024-07-11 22:58] LABS: IMMATURE GRAN ABSOLUTE AUTO 0.02 K/uL (0.00-0.23)
[2024-07-12] MEDS: HYDROmorphone 1 MG/ML Syringe IM ONE (01:12)
[2024-07-12] MEDS: HYDROmorphone 1 MG/ML Syringe IVPUSH ONE (02:04)
[2024-07-12] MEDS: Iopamidol 612 MG/ML 100 ML Bottle IV PRN (02:24)
[2024-07-12] MEDS: Sodium Chloride 0.9% 10 ML Syringe FLUSH PRN (02:24)
[2024-07-12] MEDS: Sodium Chloride 0.9% 80 ML IV ONE (02:24)
[2024-07-12 02:31] VITALS: BP 137/79
[2024-07-12] MEDS: Ketorolac 30 MG/ML SDV IVPUSH ONE (02:58)
== END 2024-07-12 03:50 | disposition home or self-care (01) ==
LOC: JP.ED 21:11
DX: K04.7 Periapical abscess without sinus (principal); F17.210 Nicotine dependence, cigarettes, uncomplicated; Z88.0 Allergy status to penicillin; Z88.2 Allergy status to sulfonamides; Z88.8 Allergy status to other drugs, medicaments and biological substances; Z79.899 Other long term (current) drug therapy; Z79.2 Long term (current) use of antibiotics; Z86.16 Personal history of COVID-19; Z90.49 Acquired absence of other specified parts of digestive tract; Z90.710 Acquired absence of both cervix and uterus
CPT/HCPCS: 36415; 70486; 70487; 85025; 96372; 96374; 96375; 99284; J1171; J1885; J3490; Q0162; Q9967

== ENCOUNTER 2024-12-13 21:59 | Emergency (ER) | payer MEDICAID ==
[2024-12-13 22:10] VITALS: BP 152/87; PULSE 99
[2024-12-13] MEDS: Clindamycin HCl 150 MG Cap PO ONE (22:55)
== END 2024-12-13 22:57 | disposition home or self-care (01) ==
LOC: JP.ED 21:59
DX: K04.7 Periapical abscess without sinus (principal); Z88.0 Allergy status to penicillin; Z88.1 Allergy status to other antibiotic agents; Z88.2 Allergy status to sulfonamides; Z88.8 Allergy status to other drugs, medicaments and biological substances; Z79.899 Other long term (current) drug therapy; Z86.16 Personal history of COVID-19; Z90.49 Acquired absence of other specified parts of digestive tract; Z90.710 Acquired absence of both cervix and uterus
CPT/HCPCS: 99283; A9270-GY

== ENCOUNTER 2024-12-25 17:12 | Emergency (ER) | payer MEDICAID ==
[2024-12-25 18:46] LABS: BASOPHILS ABSOLUTE AUTO 0.12 K/uL (0.00-0.10); BASOPHILS PERCENT AUTO 1.6 % (0.1-1.3); EOSINOPHILS ABSOLUTE AUTO 0.62 K/uL (0.00-0.40); EOSINOPHILS PERCENT AUTO 8.4 % (0.0-5.4); HEMATOCRIT 36.1 % (34.3-46.0); HEMOGLOBIN 12.4 g/dL (11.2-15.5); IMMATURE GRAN ABSOLUTE AUTO 0.01 K/uL (0.00-0.23); IMMATURE GRAN PERCENT AUTO 0.1 % (0.0-0.7); LYMPHOCYTES PERCENT AUTO 31.3 % (11.4-47.7); MEAN CORPUSCULAR HEMOGLOBIN 30.4 pg (31.6-35.5); MEAN CORPUSCULAR HGB CONC 34.3 g/dL (31.6-35.5); MEAN CORPUSCULAR VOLUME 88.5 fL (81.4-99.0); MONOCYTES ABSOLUTE AUTO 0.48 K/uL (0.20-0.90); MONOCYTES PERCENT AUTO 6.5 % (3.3-12.6); NEUTROPHILS ABSOLUTE AUTO 3.81 K/uL (1.0-7.6); NEUTROPHILS PERCENT AUTO 52.1 % (40.0-78.1); PLATELET COUNT,PLT 213 K/uL (130-375); RED BLOOD CELL COUNT 4.08 M/uL (3.77-5.24); WHITE BLOOD CELL COUNT,WBC 7.3 K/uL (3.2-11.0)
[2024-12-25 18:47] LABS: APPEARANCE,URINE SLIGHTLY CLOUDY (CLEAR); COLOR,URINE ORANGE (YELLOW)
[2024-12-25 18:49] LABS: BILIRUBIN,URINE UNABLE TO REPORT (NEGATIVE); EPITHELIAL CELLS,URINE MODERATE; GLUCOSE,URINE UNABLE TO REPORT mg/dL (NEGATIVE); KETONES,URINE UNABLE TO REPORT mg/dL (NEGATIVE); LEUKOCYTE ESTERASE,URINE UNABLE TO REPORT (NEGATIVE); NITRITE,URINE UNABLE TO REPORT (NEGATIVE); OCCULT BLOOD,URINE UNABLE TO REPORT (NEGATIVE); PROTEIN,URINE UNABLE TO REPORT mg/dL (NEGATIVE); UROBILINOGEN,URINE UNABLE TO REPORT EU/dL (0.2-1.0)
[2024-12-25 18:50] LABS: AMORPHOUS SEDIMENT,URINE NOT SEEN; BACTERIA,URINE MANY; MUCUS,URINE FEW
[2024-12-25 19:00] LABS: ANION GAP 10.6 mmol/L (5.0-14.0); CALCIUM 8.6 mg/dL (8.5-10.1); CREATININE 0.8 mg/dL (0.6-1.0); EST CRCL DRUG DOSING (CG) 84.11 mL/min
[2024-12-25] MEDS: Sodium Chloride 0.9% 1,000 ML IV SCH (20:41)
[2024-12-25] MEDS: Ketorolac 30 MG/ML SDV IVPUSH ONE (20:42)
[2024-12-25] MEDS: Ondansetron 4 MG/2 ML SDV IVPUSH ONE (20:45)
[2024-12-25] MEDS: Sodium Chloride 0.9% 10 ML Syringe FLUSH PRN (20:48)
[2024-12-25] MEDS: Morphine 4 MG/ML Syringe IVPUSH ONE (21:38)
[2024-12-25 22:06] VITALS: BP 144/99; PULSE 78
== END 2024-12-25 22:13 | disposition home or self-care (01) ==
LOC: JP.ED 17:12
DX: N13.2 Hydronephrosis with renal and ureteral calculous obstruction (principal); F17.200 Nicotine dependence, unspecified, uncomplicated; Z88.1 Allergy status to other antibiotic agents; Z88.0 Allergy status to penicillin; Z88.2 Allergy status to sulfonamides; Z79.899 Other long term (current) drug therapy; Z86.16 Personal history of COVID-19
CPT/HCPCS: 36415; 74176; 80048; 81001; 85025; 96361; 96374; 96375; 99284; J1885; J2270; J2405; J7030

== ENCOUNTER 2025-01-07 22:42 | Emergency (ER) | payer MEDICAID ==
[2025-01-07 23:38] LABS: BASOPHILS ABSOLUTE AUTO 0.07 K/uL (0.00-0.10); EOSINOPHILS ABSOLUTE AUTO 0.47 K/uL (0.00-0.40); EOSINOPHILS PERCENT AUTO 6.9 % (0.0-5.4); HEMATOCRIT 37.8 % (34.3-46.0); HEMOGLOBIN 13.6 g/dL (11.2-15.5); IMMATURE GRAN PERCENT AUTO 0.3 % (0.0-0.7); LYMPHOCYTES PERCENT AUTO 29.5 % (11.4-47.7); MEAN CORPUSCULAR HEMOGLOBIN 30.6 pg (31.6-35.5); MEAN CORPUSCULAR VOLUME 85.1 fL (81.4-99.0); MONOCYTES ABSOLUTE AUTO 0.37 K/uL (0.20-0.90); MONOCYTES PERCENT AUTO 5.5 % (3.3-12.6); NEUTROPHILS ABSOLUTE AUTO 3.84 K/uL (1.0-7.6); NEUTROPHILS PERCENT AUTO 56.8 % (40.0-78.1); PLATELET COUNT,PLT 249 K/uL (130-375); RED BLOOD CELL COUNT 4.44 M/uL (3.77-5.24); WHITE BLOOD CELL COUNT,WBC 6.8 K/uL (3.2-11.0)
[2025-01-07 23:41] LABS: IMMATURE GRAN ABSOLUTE AUTO 0.02 K/uL (0.00-0.23)
[2025-01-07] MEDS: Alum Hydrox/Mag Hydrox/Simeth 15 ML, Lidocaine 2% 15 ML PO ONE (23:56)
[2025-01-08 00:08] LABS: A/G RATIO 1.3 (1.2-2.2); ALANINE AMINOTRANSFERASE,ALT 19 U/L (12-78); ALBUMIN 4.3 g/dL (3.4-5.0); ALKALINE PHOSPHATASE 76 U/L (46-116); ASPARTATE AMNIOTRANSFERASE,AST 22 U/L (15-37); BILIRUBIN TOTAL 0.5 mg/dL (0.2-1.0); BLOOD UREA NITROGEN,BUN 8 mg/dL (7-18); CALCIUM 9.2 mg/dL (8.5-10.1); CARBON DIOXIDE,CO2 24 mmol/L (21-32); CHLORIDE,CL 102 mmol/L (100-108); CREATININE 0.8 mg/dL (0.6-1.0); EST CRCL DRUG DOSING (CG) 84.11 mL/min; ESTIMATED GFR 95 mL/min (>60); GLUCOSE RANDOM 91 mg/dL (74-106); LACTIC ACID 0.7 mmol/L (0.4-2.0); POTASSIUM,K 3.3 mmol/L (3.6-5.2); PROTEIN TOTAL,TP 7.6 g/dL (6.4-8.2); SODIUM,NA 140 mmol/L (140-148)
[2025-01-08 00:09] LABS: ANION GAP 17.3 mmol/L (5.0-14.0); C-REACTIVE PROTEIN < 0.50 mg/dL (<0.50)
[2025-01-08] MEDS: Prochlorperazine 10 MG Tab PO ONE (00:32)
[2025-01-08 00:55] VITALS: BP 159/87; PULSE 87
== END 2025-01-08 00:57 | disposition home or self-care (01) ==
LOC: JP.ED 22:42
DX: K29.70 Gastritis, unspecified, without bleeding (principal); E03.9 Hypothyroidism, unspecified; Z88.2 Allergy status to sulfonamides; Z88.8 Allergy status to other drugs, medicaments and biological substances; Z88.0 Allergy status to penicillin; Z88.1 Allergy status to other antibiotic agents; Z79.899 Other long term (current) drug therapy; Z79.890 Hormone replacement therapy; Z90.49 Acquired absence of other specified parts of digestive tract; Z90.710 Acquired absence of both cervix and uterus
CPT/HCPCS: 36415; 80053; 83605; 83690; 84484; 85025; 86140; 99283; 99284; A9270; Q0164